=== PATIENT | female | born 1995 | race Caucasian/White ===

== ENCOUNTER 2025-03-04 20:27 | Outpatient (CLI) | payer OTHER, SELFPAY ==
[2025-03-04] VITALS (19 sets, daily range): BP systolic 122–129; BP diastolic 78–83; PULSE 75–100; O2SAT 99–100; BMI 31.4
--- NOTE | 2025-03-04 20:27 | PC.NURSE ---
Pt arrives to unit with elevated blood pressures at home and swelling in hands and feet.
--- OUTSIDE RECORDS SUMMARY | 2025-03-04 20:39 | XMS_ITS | Encounter Summary ---
Author Organization [facility] Address [address] [place] [address] Phone Care Team Providers Care Bee Breeder Name Role Phone [facility] PAC Primary Care Pro vider Reason for Visit * Reason Comments Medication Refill Encounter Details Date Type Department Care Team (Late st Contact Info) Description 08/29/2022 Refill [facility] - [facility] - [place] [address] [facility] [place] [id number] [address] [facility], PAC [address] [place] [address] Medication Refill Social History Tobacco Use Types Packs/Day Years Used Date Smoking Tobacco: Never Smokeless Tobacco: Never Alcohol Use Standard Drinks/Week Comments Not Currently 0 (1 standard drink = 0.6 oz pur e alcohol) PHQ-2 Answer Date Recorded Total Score - Questions 1-9 1 07/15 Sexually Active Control Partners Comments Yes Male just Comments No Sex and Gender Information Value Date Recorded Sex Assigned at Not on file Legal Sex Female 9:15 AM CDT Gender Identity Not on file Sexual Orientation Not on file COVID-19 Exposure Response Date Recorded In the last 10 days, have yo u been in contact with someone who was confirmed or suspected to have Coronavirus/COVID-19? No / Unsure 08/16/2022 8:26 AM CDT documented as of this encounter Miscellaneous Notes * Telephone Encounter - Cheri Haney RN - 08/30/2022 9:26 AM CDT Medication failed the protocol, provider to review and approve the medication order if appropriate. Requested Prescriptions Pending Prescriptions Disp Refills escitalopram (LEXAPRO) 10 MG Tablet [Pharmacy Med Name: ESCITALOPRAM 10MG TABLETS] 30 Tablet Sig: Take 1 Tablet by mouth daily. SSRI (6 Month Refill Only) Protocol Failed - 08/29/2022 2:18 PM Failed - Patient has established therapy with SSRI for at least 6 months Passed - No test in the past 12 months or most recent test was negative Passed - No active on record Passed - Visit with relevant provider in past 6 months or upcoming 90 days Recent Visits Date Type Provider Dept 08/02/[address] [facility] PAC [facility] 06/30/[address] [facility] PAC [facility] [place] Showing recent visits within past 182 days and meeting all other requirements Future Appointments No visits were found meeting these conditions. Showing future appointments within next 90 days and meeting all other requirements Passed - Has an encounter in the past 6 months with a depression, anxiety, adjustment disorder, OCD, or PTSD visit diagnosis documented in this encounter Plan of Treatment Upcoming Encounters Date Type Department Care Team (Late st Contact Info) Description 08/05/2025 10:15 AM CDT Office Visit [facility] - Internal Medicine - [place] [address] [place] [phone] [address] [facility] PAC [address] [place] [address] documented as of this encounter Goals Goal Patient Goal Type Associated Problems Recent Progress Patient-Stated? Author wants to feel better. Behavioral Health On track( 023 8:13 AM MODEL [employer]) Yes Leisa Yu LCSW Note: will gain insight regarding impact of trauma and gain relief from traumatic stress. Goal Reviewed with: patient today Readiness to change: Ready to change Department associated with goal: [facility] Steps to achieve goal: will share personal trauma story in counseling/psychotherapy sessions. will learn/identify how trauma has impacted personal life, physical health and behavioral health. will identify and practice, at least two, skills/activities/routines, to gain relief from the impact of trauma. documented as of this encounter Visit Diagnoses Not on filedocumented in this encounter Additional Health Concerns Infection Onset Date Last Indicated Resolved Time COVID - 19 10/05/2022 10/05/2022 10/15/2022 12:1 9 AM [employer] Influenza 10/05/2022 10/05/2022 10/12/2022 12:1 6 AM [employer] Respiratory Rule-Out 01/02/2025 01/02/2025 025 8:30 AM [employer]DEL [employer] COVID - 19 01/02/2025 01/02/2025 01/02/2025 8:29 AM [employer] Assessment Noted Time PHQ-9 Depression Total Score: 11 022 11:00 AM CDT documented as of this encounter Care Teams Bee Breeder Relationship Specialty Start Date End Date Ct Mccullough, LUZ ELENA [address] [place] [address] PCP - General Physician 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
--- OUTSIDE RECORDS SUMMARY | 2025-03-04 20:39 | XMS_ITS | Data Portability ---
Author Organization 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 Discussed plan. [email or web address] Not available 01/11/2025 10:55:51 01/25/2025 01/25/2025 Patient is __30 _weeks . Discussed plan. [email or web address] Not available 01/25/2025 11:55:14 02/08/2025 02/08/2025 Patient is ___weeks . Discussed plan. [email or web address] Not available 02/08/2025 12:30:28 02/22/2025 02/22/2025 Patient is __34_weeks . Discussed plan. [email or web address] Not available 02/22/2025 14:31:37 Plan of Treatment Reminders Order Date Submit Date Provider Last Modified By Organization Details Last Modified Time Details Appointments OB ROUTINE 2024 02:00P Joe Smith CNM Not available Not available Not available OB ROUTINE 2024 11:45A Joe Smith CNM Not available Not available Not available OB ROUTINE 2024 01:15P Joe Smith CNM Not available Not available Not available OB ROUTINE 2024 09:15A Joe Smith CNM Not available Not available Not available Lab None recorded . Referral None recorded . Procedures None recorded . Surgeries None recorded . Imaging US, obstetri c, follow-u p 2024 025 [email or web address] [place], [address], [address], [place], [address], 02/08/2025 21:06:13 Medication Orders None recorded . Patient TargetsNo targets recorded. Patient InstructionsNo instructions recorded. Reason for Referral None Reported. Results Created Date Observation Date Name Description Value Unit Range Abnormal Flag Note LastModifiedBy Organization Detail LastModifiedTime 01/11/20 25 01/11/2025 HEMAT OCRIT (HCT) HCT 34.6 % (based on docume nted legal sex) 34.0-4 5.0 Not Available [facility] (Lab) [address], [place], [address], 01/14/2025 09:57:49 01/11/20 25 01/11/2025 HEMOG LOBIN (HGB) HGB 11.1 g/dL (based on docume nted legal sex) 11.6-1 5.4 low Not Available [facility] (Lab) [address], [place], [address], 01/14/2025 09:57:50 01/11/20 25 01/11/2025 GTT - GESTA DEBORAH L SCREE N, ACOG OB glucose, 1 hour screen 129 mg/dL 70-135 Not Available [facility] (Lab) [address] [place], [address], 01/14/2025 09:57:50 01/11/2001/11/2025 HIV 1/2 ANTIG EN/AN TIBOD Y, REFLE X CONFI RMATI ON HIV antigen/anti body Nonrea ctive nonrea ctive HIV-1 antig en and HIV-1 /HIV- 2 antib odies were not detec natasha. No labor atory evide nce of HIV infec tion. Not Available [facility] (Lab) [address], [place], [address], 01/14/2025 09:57:51 02/28/20 25 01/11/2025 RPR SCREE N, REFLE X TITER /CONF IRMAT ION RPR qualitative Nonrea ctive nonrea ctive Not Available [facility] (Lab) [address], [place], [address], 01/14/2025 09:57:51 02/09/20 25 02/08/2025 US, obste tric, follo w-up No observ ation record [facility]. [email or web address] [address], [place], [address], 02/08/2025 17:20:58 02/09/20 25 02/08/2025 US, obste tric, follo w-up No observ ation record ed. [address], [place], [address], 02/14/2025 19:43:21 Result Notes None recorded. Problems Name Problem SNOMED Code Status Onset Date Resolution Date Notes Provider Name and Address Organization Details Recorded Time Mixed anxiety and depressive disorder 973451192 Active 2023 Nevin morales, [facility] 4 10:59:08 Past history of gestational hypertensio n 769875238 Active rec bASA daily Mendy Smith CNM [address], [place], [address], [facility] 4 14:50:02 47117419 Active 2023 Nevin morales, [facility] 4 14:46:27 Past history of gestational hypertensio n 894051375 Active rec bASA daily Mendy Smith CNM [address], [place], [address], [facility] 4 14:50:02 Placenta circumvalla ta 1996380 Active 32wk growth Carli Nunez [facility] 5 17:16:27 Problem Notes None recorded. Procedures Surgical History Date Name Laterality Status Provider Name and Address Organization Details Recorded Time 08/29/2024 Date of Last Pap Smear completed Nevin De Anda [facility] 09/21/2024 14:43:50 Imaging Results Imaging Date Name Status LastModified by Organiz ation Details LastModified Time 02/08/2025 US, obstetric, follow-up completed [facility] [address], [place], [address], 02/08/2025 17:20:58 02/08/2025 US, obstetric, follow-up completed [email or web address] [address], [place], [address], 02/14/2025 19:43:21 Procedure Notes None recorded. Medical Equipment None Reported. Allergies Allergen ID Allergen Name Allergen Category Reaction Reaction Severity Criticality Documentation Date Start Date Code Code System Note Provider Name and Address Organization Details Recorded Time 33533 Penicilli n Not available hives moderate Not available 08/29/2024 98726 RxNorm Nevin De Anda [facility] 4 10:58:48 Medications Name Sig Start Date Stop Date Status Note LastModified by Organization Details LastModified Time azithromyci n 250 mg tablet 02/08 completed Not Available Not Available Not Available neomycin-po lymyxin-dex ameth 3.5 mg/mL-10,00 0 unit/mL-0.1 % eye drops SHAKE WELL AND INSTILL 1 DROP IN LEFT EYE 4 TIMES DAILY 08/29 completed Not Available Not Available Not Available ondansetron 4 mg disintegrat ing tablet PLACE 1 TABLET BY TRANSLING UAL ROUTE EVERY 6 TO 8 HOURS 02/08 completed Not Available Not Available Not Available escitalopra m 10 mg tablet active Not Available Not Available Not Available cyclobenzap rine 5 mg tablet TAKE 1 TABLET 3 TIMES A DAY BY ORAL ROUTE. active Not Available Not Available No t Available Vitals Date Recorded Body weight Body mass index (BMI) Body height Systolic blood pressure Diastolic blood pressure Provider Name and Address Organization Details Last Updated DateTime 01/11/2025 32469.80 533 g 31.3 kg/m2 173.99 cm 115 mm[Hg] 73 mm[Hg] Nevin De Anda [facility] 5 10:16:56 Date Recorded Body height Body mass index (BMI) Body weight Systolic blood pressure Diastolic blood pressure Provider Name and Address Organization Details Last Updated DateTime 01/25/2025 173.99 cm 31.8 kg/m2 91139.58 g 131 mm[Hg] 81 mm[Hg] Mendy Smith, GE[facility] [address], [place], [address], [facility] 11:17:44 Date Recorded Body weight Body mass index (BMI) Body height Systolic blood pressure Diastolic blood pressure Provider Name and Address Organization Details Last Updated DateTime 02/08/2025 91794.13 666 g 32.7 kg/m2 173.99 cm 118 mm[Hg] 72 mm[Hg] Nevin De Anda [facility] 5 12:30:56 Date Recorded Body height Body mass index (BMI) Body weight Systolic blood pressure Diastolic blood pressure Provider Name and Address Organization Details Last Updated DateTime 02/22/2025 173.99 cm 33.1 kg/m2 175591.9 1 g 130 mm[Hg] 85 mm[Hg] Nevin De Anda [facility] 14:29:18 Social History Question Answer Notes LastModified by Organizat ion Details LastModified Time Tobacco Smoking Status Former Smoker Nevin morales, [facility] 08/29/2024 11:02:07 What Is Your Level Of Alcohol Consumption? None [email or web address] Information not available 08/29/2024 If You Are , What Was Your Level Of Alcohol Consumption Prior To ? Occasional [email or web address] Information not available 08/29/2024 Are You Blind Or Do You Have Difficulty Seeing? No [email or web address] Information not available 08/29/2024 What Is Your Level Of Caffeine Consumption? Occasional [email or web address] Information not available 08/29/2024 How Much Tobacco Do You Chew? None [email or web address] Information not available 08/29/2024 In The 14 Days Before Symptom Onset, Have You Had Close Contact With A Laboratory-confir med COVID-19 While That Case Was Ill? No [email or web address] Information not available 08/29/2024 In The 14 Days Before Symptom Onset, Have You Had Close Contact With A Person Who Is Under Investigation For COVID-19 While That Person Was Ill? No [email or web address] Information not available 08/29/2024 Have You Been To An Area Known To Be High Risk For COVID-19? No [email or web address] Information not available 08/29/2024 Are You Deaf Or Do You Have Serious Difficulty Hearing? No [email or web address] Information not available 08/29/2024 What Type Of Diet Are You Following? REGULAR [email or web address] Information not available 08/29/2024 What Is The Highest Grade Or Level Of School You Have Completed Or The Highest Degree You Have Received? 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 No [email or web address] Information not available 08/29/2024 Do You Use Protection During Sex? No [email or web address] Information not available 08/29/2024 Do You Use Your Seat Belt Or Car Seat Routinely? Yes [email or web address] Information not available 08/29/2024 Do You Have Smoke And Carbon Monoxide Detectors In Your Home? Yes [email or web address] Information not available 08/29/2024 How Much Tobacco Do You Smoke? No [email or web address] Information not available 08/29/2024 Do You Feel Stressed (tense, Restless, Nervous, Or Anxious, Or Unable To Sleep At Night)? [id number] Information not available 08/29/2024 Do You Use Any Illicit Or Recreational Drugs? No [email or web address] Information not available 08/29/2024 Do You Use Sunscreen Routinely? Yes [email or web address] Information not available 08/29/2024 Has Tobacco Cessation Counseling Been Provided? No [email or web address] Information not available 08/29/2024 Have You Used IV Drugs? No [email or web address] Information not available 08/29/2024 Do You Or Have You Ever Used Any Other Forms Of Tobacco Or Nicotine? No [email or web address] Information not available 08/29/2024 Sex: Unknown Functional Status Question Answer Note LastModified by Organizat ion Details LastModified Time Do you have difficulty walking or climbing stairs? No [email or web address] Information not available 08/29/2024 Are you able to walk? YESWOREST [email or web address] Information not available 08/29/2024 Are you able to care for yourself? Yes Information not available 08/29/2024 Do you have difficulty dressing or bathing? No Information not available 08/29/2024 What is your exercise level? Occasional [email or web address] Information not available 08/29/2024 Mental Status None recorded. Family History Relationship Description Onset Age of this Age Resolved Age Notes LastModified by Organization Details LastModified Time Unspecified Relation Family history unknown [email or web address] Not available 01/13 10:55:40 Father Hypertensive disorder [email or web address] Not available 08/29 11:01:43 Medical History Condition Response Allergies (Food, seasonal, environmental ) N Other N Breast Cancer N Drug/Latex Allergies/Reactions N Blood Transfusion N Lung Disease N Dermatologic Disorders N Defects or Inherited Disease N Breast Problem N Gestational Diabetes N Hematologic disorders N Anesthesia Complications N History of STI N Deep Vein Thrombosis N Polycystic ovary syndrome N Anxiety Disorder Y Autoimmune disease N Arthritis N Infertility N Polyps N Acid Reflux (GERD) N History of abnormal pap N Cancer N Stroke N Varicosities N Neurologic/Epilepsy N Endometriosis N High Cholesterol N Headaches N Fibromyalgia N Kidney Disease N Heart Problems N Kidney or Bladder Problems N Thyroid Problems N GI Problems N Eating Disorder N Anemia N Art (IVF or FET) N Psychiatric Illness N Ovarian Cancer N Diabetes N Pulmonary (TB, Asthma) N Hepatitis/Liver Disease N No Past Medical History N Eczema N Urinary Tract Infection N Abuse/Domestic Violence N Asthma N Trauma/Violence N Depression/ depression Y Heart Disease N Pre-Eclampsia N Hypertension Y Osteoporosis N Thrombophilias N Gynecological History Statement/Question Response Abnormal Pap N Date of Last Mammogram Date of LMP 06/28/2024 On BCP's at Conception? N N Was last menstrual period normal Y STIs/STDs N HPV Vaccine Y Duration of Flow (days) 3 Current Control Method Age at First Child 24 Date of Last Colonoscopy Frequency of Cycle (Q days) 5 Sexually Active? Y Date of DEXA bone scan Age of first menstrual cycle 13 Date of Last Pap Smear 08/29/2024 Sexual Problems? N LMP Approximate N Obstetrics History GPAL:G 2 P 1 0 0 1 Type Value Full Term 1 Living 1 Total 2 Past Encounters Encounter ID Performer Location Encounter Start Date Encounter Closed Date Diagnosis/Indication Diagnosis SNOMED-CT Code Diagnosis ICD10 Code Diagnosis Note [id number] [facility] [address] [address] 08/29/2024 09:45:14 08/29/2024 10:39:41 [id number] Mendy Smith [place] [address] [place] [address] 08/29/2024 09:45:32 08/29/2024 11:21:45 Amenorrhea 09243600 N91.2 Gynecologi c examination 69305141 Z11.51 Z11.3 [id number] [facility] [address] [place] [address] 09/21/2024 13:55:49 09/21/2024 14:36:57 screening 784416212 Z36.82 Z3A.12 [id number] Mendy Smith [facility] [address] [place] [address] 09/21/2024 13:56:07 09/21/2024 15:00:47 Gestation period, 12 weeks 40474029 Z3A.12 Venereal d isease screening 509693758 Z11.3 Routine an tenatal care 151875059 Z34.90 Nausea and vomiting 1693 1999 R11.2 [id number] Mendy Smith [facility] [address] [place] [address] 10/19/2024 09:30:54 10/19/2024 10:21:28 Gestation period, 16 weeks 76314747 Z3A.16 [id number] [facility] [address] [address] 11/16/2024 14:06:51 11/16/2024 15:24:38 screening for malformation 770823541 Z36.3 Z3A.20 [id number] [facility] [address],[place] [address] 11/16/2024 14:07:41 11/16/2024 15:53:32 Gestation period, 20 weeks 33887060 Z3A.20 [id number] Mendy Smith CNM [place] [address],[place] [address] 12/12/2024 14:14:02 12/12/2024 14:59:01 Gestation period, 23 weeks 47200991 Z3A.23 [id number] [facility] [address],[place] [address] 01/11/2025 09:36:41 01/11/2025 10:58:31 Gestation period, 28 weeks 61544512 Z3A.28 [id number] Mendy Smith CNM [place] [address],[place] [address] 01/25/2025 11:08:05 01/25/2025 11:56:53 Gestation period, 30 weeks 95932663 Z3A.30 [id number] [facility] [address],[place] [address] 02/08/2025 10:55:15 02/08/2025 12:10:25 Past history of gestational hypertension 109463481 Z87.59 O43.113 Z3A.32 [id number] Mendy Smith CNM [place] [address],[place] [address] 02/08/2025 10:55:36 02/08/2025 12:39:02 Gestation period, 32 weeks 8949471 Z3A.32 [id number] Mendy Smith CNM [place] [address] [address] 02/22/2025 14:17:07 02/22/2025 14:37:08 Gestation period, 34 weeks 26974666 Z3A.34 Health Concerns Section Related Observation LastModified by Organization Detai ls LastModified Time None Recorded Concern Status LastModified by Organization Details LastModified Time None Recorded Advance Directives Directive None Recorded Payers Encounter Date Sequence Insurance Name Policy Number Policy Freeman Covered Member ID Freeman Member ID Guarantor Name 01/11/2025 1 [facility] [id number] Scottie Kurtz [id number] Suzy Kurtz 01/25/2025 1 [facility] [id number] Scottie Kurtz [id number] Suzy Kurtz 01/25/2025 2 () Suzy Kurtz [id number] Suzy Jerardo 02/08/2025 1 [facility] [id number] Scottie Kurtz [id number] Suzy Kurtz 02/08/2025 2 () Suzy Kurtz [id number] Suzy Jerardo 02/08/2025 1 [facility] [id number] Scottie Kurtz [id number] Suzy Kurtz 02/08/2025 2 () Suzy Kurtz [id number] Suzy Jerardo 02/22/2025 1 [facility] [id number] Scottie Kurtz [id number] Suzy Kurtz 02/22/2025 2 () Suzy Kurtz [id number] Suzy Kurtz OBGyn Episode Ob Episode Information Episode Created Date Number of Fetuses Patient Bloodtype Patient rh Status Prepregnancy Weight lbs Domestic Partner Domestic Partner Phone Father Name Wool Washer Status 08/29/20 24 1 CLOSED Fetus Data First Name Last Name Admitted to NICU Weight (g) Sex Living Outcome Pediatric Complications Fetus ID Race Codes Race Delivery Type 3826.95 5704 M Full Term [id number] Vaginal Delivery Deuce Calculation Initial Deuce Date Initial Exam Date Initial Exam Provider Initial Ultrasound Date Last Menstrual Period Date Ultra Sound Weeks Gestation 0 Eighteen To Twenty Week Deuce Update Ultra Sound Date Fundal Height At Umbil Quickening Date Ultra Sound Latest Weeks Gestation Final Deuce Confirmed By Final Deuce Confirmed Date Final Deuce Date Ultra Sound Latest Days Gestation 0 0 Menstrual History Last Menstrual Date Menses Monthly On Bcp Conception Prior Menses Frequency Hcg Plus Date Menarche Onset Age Delivery Information Delivery Date Delivery Type Labor Anesthesia Weeks Gestation Incision Type Labor Labor Length Hrs Delivered By Post Complications Tubal Sterilization Discharge Date Comments 9 40 GHTN Discharge Information Feeding Method Contraceptive Method Maternal HG B and HCT Levels Ob Episode Information Episode Created Date Number of Fetuses Patient Bloodtype Patient rh Status Prepregnancy Weight lbs Domestic Partner Domestic Partner Phone Father Name Wool Washer Status 09/21/20 24 1 AB Positive 189 Scottie oliver OPEN Fetus Data First Name Last Name Admitted to NICU Weight (g) Sex Living Outcome Pediatric Complications Fetus ID Race Codes Race Delivery Type [id number] Problems Problem Notes 32wk growth Problem Name Start Date End Date Resolution Snomed Code Not e Placenta circumvallata 1143621 32wk growth Past history of gestational hypertension 005187395 rec bASA daily Deuce Calculation Initial Deuce Date Initial Exam Date Initial Exam Provider Initial Ultrasound Date Last Menstrual Period Date Ultra Sound Weeks Gestation 04/04/2025 08/29/2024 Mendy Sarah 06/28/2024 06/28/2024 9 Eighteen To Twenty Week Deuce Update Ultra Sound Date Fundal Height At Umbil Quickening Date Ultra Sound Latest Weeks Gestation Final Deuce Confirmed By Final Deuce Confirmed Date Final Deuce Date Ultra Sound Latest Days Gestation 0 0 Pre- Flowsheet Flowsheet Date 09/21/2024 Malik Score Blood Edema Fundus Height Fundus Units Glucose Ketones Leukocytes Nitrite Labor Signs Protein Cervic Dilation Cervic Effacement Cervic Station neg none none trace Type Weight in lbs Pre/Post Dialysis Refused Weight 188.644143497640 BP Diastolic BP Location Tested BP Systolic BP Type 83 120 Fetus Heart Rate Present Fetus Movement A Yes Comments Patient is having some hip p ain, nausea and vomiting. past hx of GHTN will start basa, start routine care reviewed education and precautions Flowsheet Date 10/19/2024 Malik Score Blood Edema Fundus Height Fundus Units Glucose Ketones Leukocytes Nitrite Labor Signs Protein Cervic Dilation Cervic Effacement Cervic Station Type Weight in lbs Pre/Post Dialysis Refused Weight 191.757220828409 BP Diastolic BP Location Tested BP Systolic BP Type 81 125 Fetus Heart Rate Present Fetus Movement Comments +FM by US-sp, doing well hector sea better after zofran. precautions and education f/u 4 weeks with anatomy Flowsheet Date 11/16/2024 Malik Score Blood Edema Fundus Height Fundus Units Glucose Ketones Leukocytes Nitrite Labor Signs Protein Cervic Dilation Cervic Effacement Cervic Station Type Weight in lbs Pre/Post Dialysis Refused BP Diastolic BP Location Tested BP Systolic BP Type Fetus Heart Rate Present Fetus Movement Comments Flowsheet Date 11/16/2024 Malik Score Blood Edema Fundus Height Fundus Units Glucose Ketones Leukocytes Nitrite Labor Signs Protein Cervic Dilation Cervic Effacement Cervic Station none Type Weight in lbs Pre/Post Dialysis Refused 192.271559612788 BP Diastolic BP Location Tested BP Systolic BP Type 81 134 Fetus Heart Rate Present Fetus Movement A Yes Comments anatomy complete! doing well circumvallate placenta, q 4 months precautions and education Flowsheet Date 12/12/2024 Malik Score Blood Edema Fundus Height Fundus Units Glucose Ketones Leukocytes Nitrite Labor Signs Protein Cervic Dilation Cervic Effacement Cervic Station neg none Type Weight in lbs Pre/Post Dialysis Refused 200.773878132439 BP Diastolic BP Location Tested BP Systolic BP Type 73 112 Fetus Heart Rate Present A 150 Present Fetus Movement A Yes Comments doing well +FM, GCT at next visit, getting room ready! precautions and education Flowsheet Date 01/11/2025 Malik Score Blood Edema Fundus Height Fundus Units Glucose Ketones Leukocytes Nitrite Labor Signs Protein Cervic Dilation Cervic Effacement Cervic Station neg none 29 cm Type Weight in lbs Pre/Post Dialysis Refused 209.777534636382 BP Diastolic BP Location Tested BP Systolic BP Type 73 115 Fetus Heart Rate Present A 147 Present Fetus Movement A Yes Comments doing well, gct today, preca utions and education, rx for tdap and flu shot given, +FM, f/u 2 weeks Flowsheet Date 01/25/2025 Malik Score Blood Edema Fundus Height Fundus Units Glucose Ketones Leukocytes Nitrite Labor Signs Protein Cervic Dilation Cervic Effacement Cervic Station neg none 32 cm Type Weight in lbs Pre/Post Dialysis Refused Weight 212.708553916737 BP Diastolic BP Location Tested BP Systolic BP Type 81 131 Fetus Heart Rate Present A 148 Fetus Movement A Yes Comments +FM, doing well precautions and education, growth at next visit already scheduled f/u 2 weeks Flowsheet Date 02/08/2025 Malik Score Blood Edema Fundus Height Fundus Units Glucose Ketones Leukocytes Nitrite Labor Signs Protein Cervic Dilation Cervic Effacement Cervic Station Type Weight in lbs Pre/Post Dialysis Refused BP Diastolic BP Location Tested BP Systolic BP Type Fetus Heart Rate Present Fetus Movement Comments Flowsheet Date 02/08/2025 Malik Score Blood Edema Fundus Height Fundus Units Glucose Ketones Leukocytes Nitrite Labor Signs Protein Cervic Dilation Cervic Effacement Cervic Station neg none Type Weight in lbs Pre/Post Dialysis Refused 218.556157232948 BP Diastolic BP Location Tested BP Systolic BP Type 72 118 Fetus Heart Rate Present Fetus Movement A Yes Comments Patient states that is havin g some muscle tension in groin area. Flowsheet Date 02/22/2025 Malik Score Blood Edema Fundus Height Fundus Units Glucose Ketones Leukocytes Nitrite Labor Signs Protein Cervic Dilation Cervic Effacement Cervic Station neg none Type Weight in lbs Pre/Post Dialysis Refused Weight 221.385296861420 BP Diastolic BP Location Tested BP Systolic BP Type 85 130 Fetus Heart Rate Present Fetus Movement A Yes Comments Patient is having pain and c ontractions. reviewed precautions and education +FM f/u 2 weeks gbs collected Menstrual History Last Menstrual Date Menses Monthly On Bcp Conception Prior Menses Frequency Hcg Plus Date Menarche Onset Age 0806/28/2024 Delivery Information Delivery Date Delivery Type Labor Anesthesia Weeks Gestation Incision Type Labor Labor Length Hrs Delivered By Post Complications Tubal Sterilization Discharge Date Comments Discharge Information Feeding Method Contraceptive Method Maternal HG B and HCT Levels
--- OUTSIDE RECORDS SUMMARY | 2025-03-04 20:39 | XMS_ITS | Clinical Summary ---
Author Organization [facility] Address [address] [place] [address] Phone Care Team Providers Care Paper Baler Name Role Phone [facility] Primary Care Pro vider Allergies Active Allergy Reactions Criticality Noted Date Comments Penicillins Hives Low 06/30/2022 Medications escitalopram (LEXAPRO) 10 MG Tablet Take 1 Tablet by mouth daily. 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 Office Visit [facility] [address] [place] [address] Leonel Graham MD Acute non-recurrent sinusitis, unspecified location (Primary Dx); Stuffy and runny nose; Sinus pain; Acute nonintractable headache, unspecified headache type Discharge Disposition: Discharged to home or Selfcare 01/02/2025 Travel 12/16/2024 MyChart RX Renewal [facility] [address] [place] [address] Ct M[facility], LUZ ELENA Medication Renewal Reviewed from Last 3 Months Immunizations Immunization Administration Dates Next Due Covid-19, Mrna, Lnp-s, Pf, 30 Mcg/0.3 Ml Dose (P fizer) 04/21/2021,03/30/2021 Influenza Vaccine, Quadrivalent, PF 12/21/2018 Influenza,Split Virus,Trivalent,Injectable,PF TDAP Vaccine 01/25/2025,05/21/2019 Family History Medical History Relation Name Comments No Known Problems Father Anxiety disorder Mother Depression Mother Depression Sister Relation Name Status Comments Father Mother Sister Social History Tobacco Use Types Packs/Day Years Used Date Smoking Tobacco: Never Passive Smoke Exposure: Never Smokeless Tobacco: Never Tobacco Cessation:Counseling Given: No Alcohol Use Standard Drinks/Week Comments Not Currently 0 (1 standard drink = 0.6 oz pur e alcohol) [facility] Master Routeities Answer Date Recorded In the past 12 months has [employer], gas, oil, or water [employer] threatened to shut off services in your home? No 08/01/2024 Social Connection and Isolation Panel [NHANES] A nswer Date Recorded In a typical week, how many times do you talk on the phone with family, friends, or neighbors? Three times a week 08/01/2024 How often do you get togethe r with friends or relatives? Twice a week 08/01/2024 How often do you attend chur or scientology services? Never 08/01/2024 Do you belong to any clubs o r organizations such as religious groups, unions, fraternal or athletic groups, or school groups? No 08/01/2024 How often do you attend meet ings of the clubs or organizations you belong to? Patient declined 08/01/2024 Are you , , di vorced, , never , or living with a partner? 08/01/2024 AUDIT-C Answer Date Recorded Q1: How often do you have a drink containing alc ohol? Monthly or less 08/01/2024 Q2: How many drinks containi ng alcohol do you have on a typical day when you are drinking? 1 or 2 08/01/2024 Q3: How often do you have si x or more drinks on one occasion? Never 08/01/2024 Overall Financial Resource Strain (CARDIA) Answe r Date Recorded How hard is it for you to pa y for the very basics like food, housing, medical care, and heating? Not hard at all 08/01/2024 PHQ-2 Answer Date Recorded Total Score - Questions 1-9 0 12/15 [facility] - Occupational Stress Questionnaire Answer Date Recorded Do you feel stress - tense, restless, nervous, or anxious, or unable to sleep at night because your mind is troubled all the time - these days? Not at all 08/01/2024 Exercise Vital Sign Answer Date Recorde d On average, how many days pe r week do you engage in moderate to strenuous exercise (like a brisk walk)? 2 days 08/01/2024 On average, how many minutes do you engage in exercise at this level? 40 min 08/01/2024 Hunger Vital Sign Answer Date Recorded Within the past 12 months, y ou worried that your food would run out before you got the money to buy more. Never true 08/01/20 24 Within the past 12 months, t he food you bought just didn't last and you didn't have money to get more. Never true 08/01/2024 PRAPARE - Transportation Answer Date Re corded In the past 12 months, has l ack of transportation kept you from medical appointments or from getting medications? No 07/15 In the past 12 months, has l ack of transportation kept you from meetings, work, or from getting things needed for daily living? No 08/01/2024 Housing Stability Vital Sign Answer Say e Recorded In the last 12 months, was t here a time when you were not able to pay the mortgage or rent on time? No 03/09/2024 In the last 12 months, how many places have you lived? 1 03/09/2024 In the last 12 months, was t here a time when you did not have a steady place to sleep or slept in a skilled nursing (including now)? No 03/09/2024 Housing Stability Vital Sign Answer Say e Recorded In the last 12 months, was t here a time when you were not able to pay the mortgage or rent on time? No 08/01/2024 In the past 12 months, how m any times have you moved where you were living? 0 08/01/2024 At any time in the past 12 m [facility], were you homeless or living in a skilled nursing (including now)? No 08/01/2024 Education Answer Date Recorded What is the highest level of school you have completed or the highest degree you have received? Associate degree: occupational, technical, or vocational program 08/03/2023 Sexually Active Control Partners Comments Yes Male just Estimated Date of Delivery Comme nts Yes 05/03/2025 Sex and Gender Information Value Date Recorded Sex Assigned at Not on file Legal Sex Female 9:15 AM CDT Gender Identity Not on file Sexual Orientation Not on file Last Filed Vital Signs Vital Sign Reading Time Taken Comments Blood Pressure 130/70 01/02/2025 8:34 AM SCREW EYE ASSEMBLER Pulse 110 01/02/2025 8:34 AM SCREW EYE ASSEMBLER Temperature 36.4 C (97.5 F) 01/02/2025 8:34 AM SCREW EYE ASSEMBLER Respiratory Rate 12 08/03/2024 10:03 AM CDT Oxygen Saturation 99% 01/02/2025 8:34 AM SCREW EYE ASSEMBLER Inhaled Oxygen Concentration - - Weight 93.9 kg (207 lb) 01/02/2025 8:34 AM SCREW EYE ASSEMBLER Height 180.3 cm (5' 11 ) 01/02/2025 8:34 AM SCREW EYE ASSEMBLER Body Mass Index 28.87 01/02/2025 8:34 AM SCREW EYE ASSEMBLER Plan of Treatment Upcoming Encounters Date Type Department Care Team (Late st Contact Info) Description 08/05/2025 10:15 AM CDT Office Visit [facility] [place] [address] [place] [address] [address] M[facility], PAC [address] [place] [address] Health Maintenance Due Date Last Done Comments Hepatitis B Immunization (1 of - 19+ 3-dose series) 2013 Pap Smear 2015 Cervical Cancer Screening (CCS) 2024 HPV/Cotest 2024 SARS-COV-2 Immunization ( season) 2024 04/21/2021, 03/30/2021 Hepatitis C Virus (HCV) Screening 09/21/2025 09/21/2024 Td Immunization Every 10 Years (Adults With 1 Tdap) 01/25/2035 01/25/2025, 05/21/2019 DTaP/Tdap/Td Immunization Discontinued 2024, 05/21/2019 Influenza Immunization Completed , 12/21/2018 TdaP Immunization Discontinued 01/25/2025, 05/21/2019 Meningococcal Immunization (ACWY) Aged Out No longer eligible based on patient's age to complete this topic Pneumococcal Immunization Combined Aged Out No longer eligible based on patient's age to complete this topic Respiratory Syncytial Virus (RSV) Immunization (Adult) (No Doses Required) Completed Rotavirus Immunization Aged Out No lo nger eligible based on patient's age to complete this topic Goals Goal Patient Goal Type Associated Problems Recent Progress Patient-Stated? Author wants to feel better. Behavioral Health On track( 023 8:13 AM SCREW EYE ASSEMBLER) Yes Leisa Yu, RESIDENT BUYER Note: will gain insight regarding impact of trauma and gain relief from traumatic stress. Goal Reviewed with: patient today Readiness to change: Ready to change Department associated with goal: [facility] Steps to achieve goal: will share personal trauma story in counseling/psychotherapy sessions. will learn/identify how trauma has impacted personal life, physical health and behavioral health. will identify and practice, at least two, skills/activities/routines, to gain relief from the impact of trauma. Procedures Procedure Name Priority Date/Time Associated Diagnosis Comments POC SARS-COV-2 BY MOLECULAR Routine 01/02/2025 8:20 AM SCREW EYE ASSEMBLER Stuffy and runny nose Sinus pain Acute nonintractable headache, unspecified headache type POC INFLUENZA A AND B BY MOLECULAR Routine 01/02/2025 8:20 AM SCREW EYE ASSEMBLER Stuffy and runny nose Sinus pain Acute nonintractable headache, unspecified headache type from Last 3 Months Results * POC SARS-COV-2 BY MOLECULAR (01/02/2025 8:20 AM SCREW EYE ASSEMBLER) SARSCOV2 Negative Negative, INVALID PROCEDURE CONTROL Valid 01/02/2025 8:20 AM SCREW EYE ASSEMBLER Leonel Graham MD POINT OF CARE TESTING (MANU AL) Final Result * POC INFLUENZA A AND B BY MOLECULAR (01/02/2025 8:20 AM SCREW EYE ASSEMBLER) INFLUENZA A RNA Negative Negative, Invalid INFLUENZA B RNA Negative Negative, Invalid PROCEDURE CONTROL Valid 01/02/2025 8:20 AM SCREW EYE ASSEMBLER Leonel Graham MD POINT OF CARE TESTING (MANU AL) Final Result from Last 3 Months Insurance MEDICAID [employer] [facility] Care Teams Paper Baler Relationship Specialty Start Date End Date Ct M[facility] PAC [address] [place] [address] PCP - General Physician Yarding Supervisor 06/29/22
--- OUTSIDE RECORDS SUMMARY | 2025-03-04 20:39 | XMS_ITS | Continuity of Care Document ---
Author Name [facility] Organization [facility] Care Team Providers Care Bridge Design Engineer Name Role Phone [facility] Unavailable Unavailable Problems Combined list of problems from Department of Defense and Veterans Affairs facilities. It does not include entries that were removed or entered in error. Problem Status Onset Date Problem Type Date of Resolution Comments Source Encounter for supervision of normal first , third trimester Active 05/21/[address] [facility] Maternal care for other (suspected) abnormality and damage, fetus 1 Inactive 03/06/[address] [facility] Allergies, Adverse Reactions, Alerts Combined list of allergies from Department of Defense and Veterans Affairs facilities. It does not include entries that were removed or entered in error. Substance Category Reaction Severity Reaction type Status Date Reported Comments Source No Known Allergies Drug allergy (disorder) active 03/08/2019 [facility] Immunizations Combined list of available immunizations from the Department of Defense and Veterans Affairs facilities. Immunization Series Date Given Administered By Site Reaction Lot Number CVX Code Drug Grievance Coordinator Status Comments Source tetanus toxoid, reduced diphtheria toxoid, and acellular pertu is vaccine, adsorbed 1 2018 MADELINE PÉREZ [id number] 115 [employer] ([facility]) complet ed tetanus toxoid, reduced diphtheri a toxoid, and acellular pertussis vaccine, adsorbed DoD Influenza, injectable, quadrivalent, preservative free 1 2018 FIDE GONZALEZ [id number] [employer] ([facility]) complet ed Influenza , injectabl e, quadrival ent, preservat theresa free DoD Encounters Combined list of: 1) Encounters from Department of Veterans Affairs facilities going backup to the last 18 months, not all VA inpatient encounters are included; 2) Encounters from the Department of Defense facilities going backup to 280 months. Location Location Details Encounter Type Encounter Number Reason For Visit Attending Provider ADM Date DC Date Status Disposition Source [facility] OUTPATIENT [id number] OBI LMP ? KEVIN SUH 11/30 Released w/o Limitations [facility] [id number] NOB/EDC 19 JUL 2019 YONY ORTEGA 12/21 Released w/o Limitations [facility] OUTPATIENT [id number] FIDE GOZNALEZ 12/21 Released w/o Limitations [facility] OUTPATIENT [id number] CHRISTINA; ESTELA: 07/19/19 YONY ORTEGA 02/02 Released w/o Limitations [facility] TELE CONSULT [id number] Notes Entered by: YONY VÁSQUEZ 28 Feb 2019 1126 ------- ------- ------- ------- -- F/U US - LIMITED VIEW YONY ORTEGA 02/28 [facility] OUTPATIENT [id number] 20+5 WKS F/U FROM RADIOLO GEORGINA SALDAÑA W 03/06 Released w/o Limitations [facility]( [facility]) [facility] OUTPATIENT [id number] eye exam RADHA LAUREN 03/08 Released w/o Limitations [facility] OUTPATIENT [id number] preg ESTELA 19 Jul 2019 ROBH appt YONY ORTEGA 03/09 Released w/o Limitations [facility] OUTPATIENT [id number] christina estela YONY ORTEGA 04/18 Released w/o Limitations [facility] OUTPATIENT [id number] MARCELO PÉREZ 05/21 Released w/o Limitations [facility]) [facility] OUTPATIENT [id number] srob estela sep5 CHAMP SHIRLEY 05/21 Released w/o Limitations [facility](Ob [facility]etric [facility]) OUTPATIENT [id number] christina estela sep 5 YONY ORTEGA 06/15 Released w/o Limitations [facility]) TELE CONSULT [id number] Notes Entered by: Rosemarie MONTALVO 25 Jun 2019 1345 ------- ------- ------- ------- -- JESUSITA YAN 06/25 [facility]( [facility] [place] [facility]) OUTPATIENT [id number] christina estela sep 5 YUKI GUTIÉRREZ 07/06 Released w/o Limitations [facility](Ob stetric [facility]) OUTPATIENT [id number] 1 christina estela sep 5 YUKI RUSSO 07/13 Released w/o Limitations [facility] DIRECT TO [facility] FROM OTHER THAN ER OR APU [id number] SERGIO DELATORRE 07/17 DISCHARGED HOME [facility]) TELE CONSULT [id number] Notes Entered by: KIM ZAMUDIO 17 Jul 2019 2225 ------- ------- ------- ------- -- KIM ARELLANO 07/18 [facility]( [facility] [place] [facility](Ob stetric [facility]) OUTPATIENT [id number] 2-4 week pp appt. ERICK HU 08/01 Released w/o Limitations [facility](Ob stetric [facility]) OUTPATIENT [id number] deliver ed sept 4/ six wks pp f/u ELLANATHAN Rosemarie 08/29 Released w/o Limitations [facility]( necology [facility]) OUTPATIENT [id number] CONTROL CONSULT DOUGIE HARMON 04/02 Released w/o Limitations [facility] OUTPATIENT [id number] BUMP ON WRIST ERICK SERRANO 07/08 Released w/o Limitations [facility]( [facility]( necology [facility]) TELE CONSULT [id number] Notes Entered by: CASEY LEE 18 Sep 2020 1113 ------- ------- ------- ------- -- please call MAHESH GANN 09/18 [facility]( necology [facility]) TELE CONSULT [id number] Notes Entered by: CASEY LEE 19 Sep 2020 0821 ------- ------- ------- ------- -- Please call MAHESH GANN 09/19 [facility]( necology [facility]) OUTPATIENT [id number] Contrac eptive family counselor CASEY Suarez 12/25 Released w/o Limitations [facility] Procedures Combined list of: 1) Procedures from Department of Veterans Affairs facilities going back up to thelast 18 months, not all VA non-surgical procedures are included; 2) All procedures from the Department of Defense facilities. Procedure Procedure Type Code Date Tiffanie Weinstein CARE VISIT () 08/29/20 19 DoD CARE VISIT () 08/01/20 19 DoD MONITORING OF PRODUCTS OF CONCEPTION, CARDIAC RATE, EXTERNAL APPROACH 07/20/20 19 DoD DELIVERY OF PRODUCTS OF CONCEPTION, EXTERNAL APPROACH 07/20/20 19 DoD REPAIR PERINEUM MUSCLE, OPEN APPROACH 07/20/20 19 DoD POSTOPERATIVE FOLLOW-UP VISIT, NORMALLY INCLUDED IN THE SURGICAL PACKAGE, INDICATE THAT EVALUATION & MANAGEMENT SERVICE WAS PERFORMED DURING A POSTOPERATIVE PERIOD REASON RELATED ORIGINAL PROCEDURE 07/20/20 [facility] POSTOPERATIVE FOLLOW-UP VISIT, NORMALLY INCLUDED IN THE SURGICAL PACKAGE, INDICATE THAT EVALUATION & MANAGEMENT SERVICE WAS PERFORMED DURING A POSTOPERATIVE PERIOD REASON RELATED ORIGINAL PROCEDURE 07/19/20 [facility] POSTOPERATIVE FOLLOW-UP VISIT, NORMALLY INCLUDED IN THE SURGICAL PACKAGE, INDICATE THAT EVALUATION & MANAGEMENT SERVICE WAS PERFORMED DURING A POSTOPERATIVE PERIOD REASON RELATED ORIGINAL PROCEDURE 07/18/20 [facility] SUBSEQ CARE VISIT () [EXCLS:PATIENTS WHO ARE SEEN FOR A CONDITION UNREL TO / CARE (EG,AN UP RESPIR INFECT;PATIENTS SEEN FOR CONSULTATION ONLY,NOT FOR CONT CARE)] 07/13/20 [facility] SUBSEQ CARE VISIT () [EXCLS:PATIENTS WHO ARE SEEN FOR A CONDITION UNREL TO / CARE (EG,AN UP RESPIR INFECT;PATIENTS SEEN FOR CONSULTATION ONLY,NOT FOR CONT CARE)] 07/06/20 [facility] CULTURE, PRESUMPTIVE, PATHOGENIC ORGANISMS, SCREENING ONLY 06/15/20 [facility] SUBSEQ CARE VISIT () [EXCLS:PATIENTS WHO ARE SEEN FOR A CONDITION UNREL TO / CARE (EG,AN UP RESPIR INFECT;PATIENTS SEEN FOR CONSULTATION ONLY,NOT FOR CONT CARE)] 05/21/20 [facility] IMMUNIZATION ADMINISTRATION (INCLUDES PERCUTANEOUS, INTRADERMAL, SUBCUTANEOUS, OR INTRAMUSCULAR INJECTIONS); 1 VACCINE (SINGLE OR COMBINATION VACCINE/TOXOID) 05/21/20 [facility] SUBSEQ CARE VISIT () [EXCLS:PATIENTS WHO ARE SEEN FOR A CONDITION UNREL TO / CARE (EG,AN UP RESPIR INFECT;PATIENTS SEEN FOR CONSULTATION ONLY,NOT FOR CONT CARE)] 04/18/20 [facility] SUBSEQ CARE VISIT () [EXCLS:PATIENTS WHO ARE SEEN FOR A CONDITION UNREL TO / CARE (EG,AN UP RESPIR INFECT;PATIENTS SEEN FOR CONSULTATION ONLY,NOT FOR CONT CARE)] 03/09/20 [facility] DETERMINATION OF REFRACTIVE STATE 03/08/20 [facility] ULTRASOUND, UTERUS, REAL TIME WITH IMAGE DOCUMENTATION, AND MATERNAL EVALUATION PLUS DETAILED ANATOMIC EXAMINATION,TRANSABD OMINAL APPROACH; SINGLE OR FIRST GESTATION 03/06/20 [facility] SUBSEQ CARE VISIT () [EXCLS:PATIENTS WHO ARE SEEN FOR A CONDITION UNREL TO / CARE (EG,AN UP RESPIR INFECT;PATIENTS SEEN FOR CONSULTATION ONLY,NOT FOR CONT CARE)] 02/03/20 [facility] INFLUENZA VIRUS VACCINE, QUADRIVALENT (IIV4), SPLIT VIRUS, PRESERVATIVE FREE, 0.5 ML DOSAGE, FOR INTRAMUSCULAR USE 12/21/[address] [facility] PRENAT FLW SHEET DOC,MED REC,1ST PRENAT VIS (DOC INC MIN BP,WT,URINE PROT,UTER SZ,FET HRT TONE,&EST DATE DEL). REP ALSO:DATE VIS &,IN SEP FLD,DATE LMP (NOTE:IF REP [id number],NOT NECESSARY TO REP 0500F) 12/21/19 [facility] ULTRASOUND, UTERUS, REAL TIME WITH IMAGE DOCUMENTATION,TRANSV AGINAL 11/30/[address] [facility] Obstetrical Services Care Visit Obstetrical Services Care Visit [id number] 08/29/[address] [facility] Obstetrical Services Care Visit Obstetrical Services Care Visit [id number] 08/01/[address] [facility] OB Services Antepartum Care Only Subsequent Single Visit OB Services Antepartum Care Only Subsequent Single Visit [id number] 07/13/[address] [facility] Ultrasound Obstetric Limited Evaluation Ultrasound Obstetric Limited Evaluation [id number] 07/06/20 [address] [facility] OB Services Antepartum Care Only Subsequent Single Visit OB Services Antepartum Care Only Subsequent Single Visit [id number] 07/06/20 [address] [facility] Presumptive Culture For Multiple Organisms Presumptive Culture For Multiple Organisms [id number] 06/15/[address] [facility] OB Services Antepartum Care Only Subsequent Single Visit OB Services Antepartum Care Only Subsequent Single Visit [id number] 06/15/[address] [facility] OB Services Antepartum Care Only 1st Visit, With Flowsheet OB Services Antepartum Care Only 1st Visit, With Flowsheet [id number] 06/15/[address] [facility] Ultrasound Obstetric Limited Evaluation Ultrasound Obstetric Limited Evaluation [id number] 06/15/[address] [facility] OB Services Antepartum Care Only Subsequent Single Visit OB Services Antepartum Care Only Subsequent Single Visit [id number] 05/21/[address] [facility] Ultrasound Obstetric Limited Evaluation Ultrasound Obstetric Limited Evaluation [id number] 05/21/20 19 CHAMP SHIRLEY Tdap Vaccine Tdap Vaccine [id number] 05/21/20 19 MADELINE PÉREZ Tdap; Series #: 1; 0.5 mL; IM; Left Arm; Mfg: [employer] Lot: [id number]; VIS given (Werner: 01/07/15). DoD Immunization Administration One Vaccine Immunization Administration One Vaccine [id number] 05/21/[address] [facility] OB Services Antepartum Care Only Subsequent Single Visit OB Services Antepartum Care Only Subsequent Single Visit [id number] 04/18/[address] [facility] OB Services Antepartum Care Only Subsequent Single Visit OB Services Antepartum Care Only Subsequent Single Visit [id number] 03/09/20 19 YONY ORTEGA DoD Prescription & Fitting Bilateral Corneal Lenses (Not Aphakia Prescription & Fitting Bilateral Corneal Lenses (Not Aphakia 49090 03/08/[address] [facility] Determination Of Refractive State Determination Of Refractive State [id number] 03/08/[address] [facility] Ophthalmological New Patient Start Comprehensive Care Ophthalmological New Patient Start Comprehensive Care [id number] 03/08/[address] [facility] Transabd Ultrasound W/ Exam Single Or First Gestation Transabd Ultrasound W/ Exam Single Or First Gestation [id number] 03/06/20 19 GEORGINA OROZCO DoD OB Services Antepartum Care Only Subsequent Single Visit OB Services Antepartum Care Only Subsequent Single Visit [id number] 02/03/20 19 YONY ORTEGA DoD Immunization Administration One Vaccine Immunization Administration One Vaccine [id number] 12/21/[address] [facility] OB Services Antepartum Care Only 1st Visit, With Flowsheet OB Services Antepartum Care Only 1st Visit, With Flowsheet [id number] 12/21/19 19 YONY ORTEGA DoD Ultrasound Obstetric Limited Evaluation Ultrasound Obstetric Limited Evaluation 78929 12/21/19 19 YONY ORTEGA DoD Ultrasound [place] [address] 11/30/[address] [facility] Social History Combined list of available smoking, tobacco, and other social history from Department of Defense and Veterans Affairs facilities. Social History Type Response Date Comment Sour e This section is an empty social history section. DoD
[2025-03-04 21:30] LABS: Add Urine Microscopic? NO; Appearance Urine Clear (Clear); Basophils Absolute Auto 0.1 K/mm3 (0.0-0.1); Basophils Percent Auto 0.6 % (0.2-1.2); Bilirubin Urine Negative (Negative); Blood Urine Negative (Negative); Color Urine Yellow (Yellow); Eosinophils Absolute Auto 0.2 K/mm3 (0-0.3); Eosinophils Percent Auto 1.8 % (0-4.4); Glucose Urine UA Negative (Negative); Hematocrit 33.8 % (37.0-47.0); Hemoglobin 11.2 g/dL (12.0-15.0); Immature Granulocyte Absolute 0.59 K/mm3 (0.00-0.031); Immature Granulocyte Percent A 5.4 % (0-0.5); Ketones Urine Negative (Negative); Leukocyte Esterase Ur Negative LEU/UL (Negative); Lymphocytes Absolute Auto 1.83 K/mm3 (0.9-3.2); Lymphocytes Percent Auto 16.9 % (18.3-44.2); Mean Corpuscular HGB Conc 33.1 g/dl (32-36); Mean Corpuscular Hemoglobin 29.9 pg (26-34); Mean Corpuscular Volume 90.4 fl (80-100); Mean Platelet Volume 10.6 fl (7.4-10.4); Monocytes Percent Auto 9.2 % (2.6-8.5); Neutrophils Absolute Auto 7.2 K/mm3 (1.3-6.7); Neutrophils Percent Auto 66.1 % (45.5-73.1); Nitrate Urine Negative (Negative); Platelet Count Result 141 k/mm3 (150-375); Protein Urine Negative (Negative); Red Blood Count 3.74 M/mm3 (4.2-5.4); Red Cell Distribution Width 13.6 % (11.5-14.5); Specific Grav Ur 1.008 (1.001-1.035); White Blood Count 10.9 K/mm3 (4.5-10.0); pH Urine 7.5 (5.0-9.0)
[2025-03-04 21:33] LABS: Creatinine Urine 35.1 mg/dL; Total Protein Urine Random 12 mg/dL; Ur Ttl Prot Creatinine Ratio 0.34 mg/mg (0-0.20)
[2025-03-04 21:36] LABS: Alanine Aminotransferase 15 U/L (6-35); Albumin Level 3.1 g/dL (3.5-5.1); Alkaline Phosphatase 101 U/L (38-126); Anion Gap 8 mmol/L (4-12); Aspartate Amino Transferase 23 U/L (14-36); Bilirubin,Total 0.2 mg/dL (0.2-1.3); Blood Urea Nitrogen 4 mg/dL (7-17); Calcium 8.1 mg/dL (8.4-10.2); Carbon Dioxide 20 mmol/L (22-30); Chloride 107 mmol/L (98-107); Estimated CRCL calculation 230 ml/min; Estimated Glomerular Filt Rate > 60; Glucose 85 mg/dL (65-110); Potassium 3.5 mmol/L (3.4-5.0); Sodium 135 mmol/L (137-145); Uric Acid 3.7 mg/dL (2.5-7.5)
--- NOTE | 2025-03-04 22:03 | PC.NURSE ---
Called Gilles Smith CNM, update on pt, blood pressures, swelling in feet, reactive tracing with irregular contractions, and labs with blood work pending. Gilles Smith to review pending labs in the morning. Orders received to discharge pt with instructions to keep next scheduled appointment and when to return to the unit.
--- NOTE | 2025-03-04 22:48 | PC.NURSE ---
Pt discharged with instructions to keep next scheduled appointment and when to return to the unit, pt verbalizes understanding.
[2025-03-05 01:20] LABS: Platelet Estimate Slightly Decreased (Adequate)
[2025-03-05 01:21] LABS: Anisocytosis 1+; Microcytosis 1+ (NORMAL); Schistocytes None Seen
== END 2025-03-04 22:48 | disposition home or self-care (01) ==
LOC: ANHOBOP 20:37 → ANHOBPP 20:40
PROVIDERS: Advanced Practice Midwife; Visit Provider Obstetrics & Gynecology
DX: O13.9 Gestational [pregnancy-induced] hypertension without significant proteinuria, unspecified trimester (principal); Z3A.00 Weeks of gestation of pregnancy not specified
CPT/HCPCS: 36415; 59025; 80053; 81003; 82570; 84156; 84550; 85025

== ENCOUNTER 2025-03-30 02:16 | Inpatient (IN) | payer OTHER, SELFPAY ==
[2025-03-30] VITALS (142 sets, daily range): BP systolic 105–165; BP diastolic 66–109; PULSE 25–132; RESP 16–18; TEMP 36.6–37.2; O2SAT 82–100; BMI 33.2
--- OUTSIDE RECORDS SUMMARY | 2025-03-30 04:29 | XMS_ITS | Continuity of Care Document ---
Author Organization [facility] Address [address] [place] [address] Care Team Providers Care Cupola Tapper Name Role Phone ROMEOEVELIA Primary Care Provider Assessment Encounter Date Assessment Date Assessment LastModified by Organization Details LastModified Time 03/29/2025 03/29/2025 Patient is ___39 weeks . Discussed plan. Not available 03/29/2025 11:12:08 Plan of Treatment Reminders Order Date Submit Date Provider Last Modified By Organization Details Last Modified Time Details Appointments INDUCTION 2024 06:30A M Mendy Smith CNM Not available Not available Not available Lab None recorded. Referral None recorded. Procedures None recorded. Surgeries None recorded. Imaging None recorded. Medication Orders None recorded. Patient TargetsNo targets recorded. Patient InstructionsNo instructions recorded. Reason for Referral None Reported. Results Created Date Observation Date Name Description Value Unit Range Abnormal Flag Note LastModifiedBy Organization Detail LastModifiedTime 09/21/2009/21/2024 US, obste tric, nucha l trans lucen cy No observ ation record ed. [email or web address] [facility] [address], [place], [address], 09/21/2024 17:41:13 09/21/20 24 09/21/2024 US, obste tric, 1st trime ster No observ ation record ed. [email or web address] [facility] [address], [place], [address], 09/21/2024 17:41:24 09/21/20 24 09/21/2024 US, obste tric, follo w-up No observ ation record ed. [email or web address] [facility] [address], [place], [address], 09/27/2024 09:49:25 11/16/19 25 11/16/2024 US, obste tric, 2nd or 3rd trime ster No observ ation record ed. [facility] [address], [place], [address], 11/16/2024 17:07:38 11/16/19 25 11/16/2024 US, obste tric, follo w-up No observ ation record ed. [email or web address] [address], [place], [address], 12/04/2024 16:36:36 02/09/20 25 02/08/2025 US, obste tric, follo w-up No observ ation record ed. [facility] [address], [place], [address], 02/08/2025 17:20:58 02/09/20 25 02/08/2025 US, obste tric, follo w-up No observ ation record ed. [email or web address] [facility] [address], [place], [address], 02/14/2025 19:43:21 Result Notes None recorded. Problems Name Problem SNOMED Code Status Onset Date Resolution Date Notes Provider Name and Address Organization Details Recorded Time Mixed anxiety and depressiv e disorder 574014047 Active 2023 Nevin De Anda [facility], [facility] 4 10:59:08 Past history of gestation al hypertens ion 612037501 Active rec bASA daily Mendy Smith CNM [address], [place], [address], [facility] 4 14:50:02 29774470 Active [address] [facility] 4 14:46:27 Past history of gestation al hypertens ion 012404655 Active rec bASA daily Mendy Smith, CN [address], [place], [address], [facility] 4 14:50:02 Placenta circumval akiko 0388438 Active 32wk growth Carli Nunez [facility] 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 5 18:38:21 Problem Notes None recorded. Procedures Surgical History Date Name Laterality Status Provider Name and Address Organization Details Recorded Time 08/29/2024 Date of Last Pap Smear completed Nevin De Anda [facility] 09/21/2024 14:43:50 Imaging Results None recorded. Procedure Notes None recorded. Medical Equipment None Reported. Allergies Allergen ID Allergen Name Allergen Category Reaction Reaction Severity Criticality Documentation Date Start Date Code Code System Note Provider Name and Address Organization Details Recorded Time 29620 Penicilli n Not available hives moderate Not available 08/29/2024 75180 RxNorm Nevin De Anda [facility] 4 10:58:48 Medications Name Sig Start [...] 3 TIMES A DAY BY ORAL ROUTE. 03/29 completed Not Available Not Available Not Available Vitals Date Recorded Body height Body mass index (BMI) Body weight Systolic blood pressure Diastolic blood pressure Provider Name and Address Organization Details Last Updated DateTime 03/29/2025 173.99 cm 36.1 kg/m2 876700.7 6 g 126 mm[Hg] 87 mm[Hg] Nevin De Anda [facility] 10:22:48 Social History Question Answer Notes LastModified by Organizat ion Details LastModified Time Tobacco Smoking Status Former Smoker Nevin De Anda [facility] 08/29/2024 11:02:07 If You Are , What Was Your Level Of Alcohol Consumption Prior To ? Occasional [email or web address] Information not available 08/29/2024 Are You Blind Or Do You Have Difficulty Seeing? No [email or web address] Information not available 08/29/2024 What Is Your Level Of Caffeine Consumption? Occasional [email or web address] Information not available 08/29/2024 How Much Tobacco Do You Chew? None [email or web address] Information not available 08/29/2024 In The 14 Days Before Symptom Onset, Have You Had Close Contact With A Laboratory-confir med COVID-19 While That Case Was Ill? No [email or web address] Information not available 08/29/2024 In The 14 Days Before Symptom Onset, Have You Had Close Contact With A Person Who Is Under Investigation For COVID-19 While That Person Was Ill? No [email or web address] Information not available 08/29/2024 Have You Been To An Area Known To Be High Risk For COVID-19? No Information not available 08/29/2024 Are You Deaf Or Do You Have Serious Difficulty Hearing? No [email or web address] Information not available 08/29/2024 What Type Of Diet Are You Following? REGULAR [email or web address] Information not available 08/29/2024 What Is The Highest Grade Or Level Of School You Have Completed Or The Highest Degree You Have Received? BT37502-5 [email or web address] Information not available 08/29/2024 Are There Any Guns Present In Your Home? No [email or web address] Information not available 08/29/2024 Do You Use Protection During Sex? No [email or web address] Information not available 08/29/2024 Do You Use Your Seat Belt Or Car Seat Routinely? Yes Information not available 08/29/2024 Do You Have Smoke And Carbon Monoxide Detectors In Your Home? Yes [email or web address] Information not available 08/29/2024 How Much Tobacco Do You Smoke? No [email or web address] Information not available 08/29/2024 Do You Use Sunscreen Routinely? Yes [email or web address] Information not available 08/29/2024 Has Tobacco Cessation Counseling Been Provided? No Information not available 08/29/2024 Have You Used IV Drugs? No Information not available 08/29/2024 Do You Have Difficulty Walking Or Climbing Stairs? No [email or web address] Information not available 08/29/2024 Sex: Unknown Functional Status Question Answer Note LastModified by Organizat ion Details LastModified Time Do you use any illicit or recreational drugs? No Information not available 08/29/2024 Do you or have you ever used any other forms of tobacco or nicotine? No [email or web address] Information not available 08/29/2024 What is your level of alcohol consumption? None [email or web address] Information not available 08/29/2024 Are you able to walk? [email or web address] Information not available 08/29/2024 Are you able to care for yourself? 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 No Information not available 08/29/2024 What is your exercise level? Occasional Information not available 08/29/2024 Mental Status Question Answer Note LastModified by Organization D etails LastModified Time Do you feel stressed (tense, restless, nervous, or anxious, or unable to sleep at night)? [id number] [email or web address] Information not available 08/29/2024 Family History Relationship Description Onset Age of this Age Resolved Age Notes LastModified by Organization Details LastModified Time Unspecified Relation Family history unknown [email or web address] Not available 2024 09:51:49 Father Hypertensive disorder [email or web address] Not available 08/29 11:01:43 Medical History Condition [...] Disorder Y Autoimmune disease N Arthritis N Polyps N Infertility N History of abnormal pap N Acid Reflux (GERD) N Cancer N Varicosities N Stroke N Neurologic/Epilepsy N Endometriosis N High Cholesterol N Fibromyalgia N Headaches N Kidney Disease N Heart Problems N [...] SNOMED-CT Code Diagnosis ICD10 Code Diagnosis Note [id number] Mendy Smith CNM [facility] [address] [address] 03/08/2025 14:50:18 03/08/2025 15:06:46 screening 353979011 Z36.85 Gestation period, 36 weeks 36215466 Z3A.36 [id number] Mendy Smith [facility] [address],[place] [address] 03/13/2025 12:37:14 03/13/2025 13:42:46 Gestation period, 36 weeks 21886739 Z3A.36 [id number] Mendy Smith [facility] [address],[place] [address] 03/20/2025 13:59:31 03/20/2025 14:44:37 Gestation period, 37 weeks 03164722 Z3A.37 [id number] Mendy Smith [facility] [address],[place] [address] 03/29/2025 09:51:46 03/29/2025 11:17:58 Gestation period, 39 weeks 58363947 Z3A.39 Health Concerns Section Related Observation LastModified by Organization Detai ls LastModified Time None Recorded Concern Status LastModified by Organization Details LastModified Time None Recorded Payers Encounter Date Sequence Insurance Name Policy Number Policy Freeman Covered Member ID Freeman Member ID Guarantor Name 03/29/2025 1 [facility] [id number] Scottie Kutrz [id number] Suzy Kurtz 03/29/2025 2 () Suzy Kurtz [id number] Suzy Kurtz OBGyn Episode Ob Episode Information Episode Created Date Number of Fetuses Patient Bloodtype Patient rh Status Prepregnancy Weight lbs Domestic Partner Domestic Partner Phone Father Name 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 Status 09/21/20 24 1 AB Positive 189 Scottie oliver OPEN Fetus Data First Name Last Name Admitted to NICU Weight (g) Sex Living Outcome Pediatric Complications Fetus ID Race Codes Race Delivery Type [id number] Problems Problem Notes 32wk growth Problem Name Start Date End Date Resolution Snomed Code Not e Placenta circumvallata 2228392 32wk growth Group B Streptococcus carrier 03/12/2025 2132485163354 amp in labor Past history of gestational hypertension 530914593 rec bASA daily Deuce Calculation Initial Deuce Date Initial Exam Date Initial Exam Provider Initial Ultrasound Date Last Menstrual Period Date Ultra Sound Weeks Gestation 04/04/2025 08/29/2024 Mendy Smith 06/28/2024 06/28/2024 9 Eighteen To Twenty Week [...] Weight in lbs Pre/Post Dialysis Refused Weight 188.407017985874 BP Diastolic BP Location Tested BP Systolic [...] Weight in lbs Pre/Post Dialysis Refused Weight 191.653634965231 BP Diastolic BP Location Tested BP Systolic [...] Type Weight in lbs Pre/Post Dialysis Refused 192.966229225431 BP Diastolic BP Location Tested BP Systolic [...] Type Weight in lbs Pre/Post Dialysis Refused 200.496884774842 BP Diastolic BP Location Tested BP Systolic [...] Type Weight in lbs Pre/Post Dialysis Refused 209.809019475774 BP Diastolic BP Location Tested BP Systolic [...] Weight in lbs Pre/Post Dialysis Refused Weight 212.640508874963 BP Diastolic BP Location Tested BP Systolic [...] Type Weight in lbs Pre/Post Dialysis Refused 218.261953387323 BP Diastolic BP Location Tested BP Systolic [...] Weight in lbs Pre/Post Dialysis Refused Weight 221.747694517124 BP Diastolic BP Location Tested BP Systolic BP Type 85 130 Fetus Heart Rate Present Fetus Movement A Yes Comments Patient is having pain and c ontractions. reviewed precautions and education +FM f/u 2 weeks gbs collected Flowsheet Date 03/08/2025 Malik Score Blood Edema Fundus Height Fundus Units Glucose Ketones Leukocytes Nitrite Labor Signs Protein Cervic Dilation Cervic Effacement Cervic Station neg trace Type Weight in lbs Pre/Post Dialysis Refused Weight 230.612535296018 BP Diastolic BP Location Tested BP Systolic BP Type 82 129 Fetus Heart Rate Present Fetus Movement A Yes Comments patient is having some swell ing. at [facility] on tuesday . +FM GBS today cervix 1.5/thick soft, precautions and education f/u one week Flowsheet Date 03/13/2025 Malik Score Blood Edema Fundus Height Fundus Units Glucose Ketones Leukocytes Nitrite Labor Signs Protein Cervic Dilation Cervic Effacement Cervic Station neg trace 37 cm Type Weight in lbs Pre/Post Dialysis Refused 231.250210898950 BP Diastolic BP Location Tested BP Systolic BP Type 82 131 Fetus Heart Rate Present A 143 Present Fetus Movement A Yes Comments Patient is having contractio ns and swelling. +FM, declines cervical exam, education and precautions f/u one week Flowsheet Date 03/20/2025 Malik Score Blood Edema Fundus Height Fundus Units Glucose Ketones Leukocytes Nitrite Labor Signs Protein Cervic Dilation Cervic Effacement Cervic Station neg trace 38 cm 1cm Type Weight in lbs Pre/Post Dialysis Refused Weight 237.6593235041 BP Diastolic BP Location Tested BP Systolic BP Type 87 133 Fetus Heart Rate Present A 150 Present Fetus Movement A Yes Comments Patient is having contractio ns as swelling. would like to try to wait for natural labor, +FM reviewed precautions and education f/uone week Flowsheet Date 03/29/2025 Malik Score Blood Edema Fundus Height Fundus Units Glucose Ketones Leukocytes Nitrite Labor Signs Protein Cervic Dilation Cervic Effacement Cervic Station neg none 38 cm Type Weight in lbs Pre/Post Dialysis Refused Weight 241.469258523682 BP Diastolic BP Location Tested BP Systolic BP Type 87 126 Fetus Heart Rate Present A 145 Fetus Movement A Yes Comments Patient is having some contr actions. IOL next week, precautions and education +FM Menstrual History Last Menstrual Date Menses Monthly [...]
--- OUTSIDE RECORDS SUMMARY | 2025-03-30 04:29 | XMS_ITS | Continuity of Care Document ---
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 It does not include entries that were removed or entered in error. Problem Status Onset Date Problem Type Date of Resolution Comments Source Encounter for supervision of normal first , third trimester Active 05/21/2019 Condition [facility] Maternal care for other (suspected) abnormality and damage, fetus 1 Inactive 03/06/2019 Condition [facility] Allergies, Adverse Reactions, Alerts Combined list of allergies from Department of Defense and Veterans Affairs facilities. It does not include entries that were removed or entered in error. Substance Category Reaction Severity Reaction type Status Date Reported Comments Source No Known Allergies Drug allergy (disorder) active 03/08/2019 [facility] Immunizations Combined list of available immunizations from the Department of Defense and Veterans Affairs facilities. Immunization Series Date Given Administered By Site Reaction Lot Number CVX Code Drug Anatomy Professor Status Comments Source tetanus toxoid, reduced diphtheria toxoid, and acellular pertu is vaccine, adsorbed 1 2018 MADELINE PÉREZ [id number] [employer] ([facility]) complet ed tetanus toxoid, reduced diphtheri a toxoid, and acellular pertussis vaccine, adsorbed DoD Influenza, injectable, quadrivalent, preservative free 1 2018 FIDE GONZALEZ [id number] 150 [employer] ([facility]) complet ed Influenza , injectabl e, quadrival [...] ADM Date DC Date Status Disposition Source [facility]) OUTPATIENT [id number] OBI LMP ? KEVIN SUH 11/30 Released w/o Limitations [facility] [place] OUTPATIENT [id number] NOB/EDC 19 JUL 2019 YONY ORTEGA 12/21 Released w/o Limitations [facility] OUTPATIENT [id number] FIDE GONZALEZ 12/21 Released w/o Limitations [facility]( [facility]) [facility] [place] OUTPATIENT [id number] CHRISTINA; ESTELA: 07/19/19 YONY ORTEGA 02/02 Released w/o Limitations [facility] [place] TELE CONSULT [id number] Notes Entered by: YONY VÁSQUEZ 28 Feb 2019 1126 ------- ------- ------- ------- -- F/U US - LIMITED VIEW YONY ORTEGA 02/28 [facility] OUTPATIENT [id number] 20+5 WKS F/U FROM RADIOLO GEORGINA SALDAÑA W 03/06 Released w/o Limitations [facility]( [facility]) [facility] [place] OUTPATIENT [id number] eye exam RADHA LAUREN 03/08 Released w/o Limitations [facility] [place] OUTPATIENT [id number] preg ESTELA 19 Jul 2019 ROBH appt YONY ORTEGA 03/09 Released w/o Limitations [facility] [place] OUTPATIENT [id number] christina estela YONY ORTEGA 04/18 Released w/o Limitations [facility] OUTPATIENT [id number] MARCELO PÉREZ 05/21 Released w/o Limitations [facility]( [facility]) [facility] [place] OUTPATIENT [id number] srob estela sep5 CHAMP SHIRLEY 05/21 Released w/o Limitations [facility]) OUTPATIENT [id number] christina estela sep 5 YONY ORTEGA 06/15 Released w/o Limitations [facility]) TELE CONSULT [id number] Notes Entered by: Rosemarie MONTALVO 25 Jun 2019 1345 ------- ------- ------- ------- -- JESUSITA YAN 06/25 [facility]( [facility] [place] [facility]) OUTPATIENT [id number] christina estela sep 5 YUKI GUTIÉRREZ 07/06 Released w/o Limitations [facility](Ob [facility]) OUTPATIENT [id number] christina estela sep 5 YUKI RUSSO 07/13 Released w/o Limitations [facility] DIRECT TO [facility] FROM OTHER THAN ER OR APU [id number] SERGIO DELATORRE 07/17 DISCHARGED HOME [facility]) TELE CONSULT [id number] Notes Entered by: KIM ZAMUDIO 17 Jul 2019 2225 ------- ------- ------- ------- -- KIM ARELLANO 07/18 [facility]( [facility] [place] [facility](Ob [facility]etric [facility]) OUTPATIENT [id number] 2-4 week pp appt. ERICK HU 08/01 Released w/o Limitations [facility]) OUTPATIENT [id number] deliver ed sept 4/ six wks pp f/u ELLANATHAN PRADO Rosemarie 08/29 Released w/o Limitations [facility]( necology [facility]) OUTPATIENT [id number] CONTROL CONSULT DOUGIE HARMON 04/02 Released w/o Limitations [facility] OUTPATIENT [id number] BUMP ON WRIST ERICK SERRANO 07/08 Released w/o Limitations [facility]( necology [facility]) TELE CONSULT [id number] Notes Entered by: CASEY LEE 18 Sep 2020 1113 ------- ------- ------- ------- -- please call MAHESH GANN 09/18 [facility]( necology [facility]) TELE CONSULT [id number] Notes Entered by: CASEY LEE 19 Sep 2020 0821 ------- ------- ------- ------- -- Please call MAHESH GANN 09/19 [facility]( nec[facility]) OUTPATIENT [id number] Contrac eptive counseling specialist CASEY Suarez 12/25 Released w/o Limitations [facility]( [...] CARDIAC RATE, EXTERNAL APPROACH 07/20/20 19 DoD REPAIR PERINEUM MUSCLE, OPEN APPROACH 07/20/20 19 DoD DELIVERY OF PRODUCTS OF CONCEPTION, EXTERNAL APPROACH 07/20/20 19 DoD POSTOPERATIVE FOLLOW-UP VISIT, NORMALLY INCLUDED IN THE SURGICAL PACKAGE, INDICATE THAT EVALUATION & MANAGEMENT SERVICE WAS PERFORMED DURING A POSTOPERATIVE PERIOD REASON RELATED ORIGINAL PROCEDURE 07/20/20 [facility] POSTOPERATIVE FOLLOW-UP VISIT, NORMALLY INCLUDED IN THE SURGICAL PACKAGE, INDICATE THAT EVALUATION & MANAGEMENT SERVICE WAS PERFORMED DURING A POSTOPERATIVE PERIOD REASON RELATED ORIGINAL PROCEDURE 07/19/20 [facility] POSTOPERATIVE FOLLOW-UP VISIT, NORMALLY INCLUDED IN THE SURGICAL PACKAGE, INDICATE THAT EVALUATION & MANAGEMENT SERVICE WAS PERFORMED DURING A POSTOPERATIVE PERIOD REASON RELATED ORIGINAL PROCEDURE 07/18/20 [facility] SUBSEQ CARE VISIT () [EXCLS:PATIENTS WHO ARE SEEN FOR A CONDITION UNREL TO / CARE (EG,AN UP RESPIR INFECT;PATIENTS SEEN FOR CONSULTATION ONLY,NOT FOR CONT CARE)] 07/13/20 [facility] SUBSEQ CARE VISIT () [EXCLS:PATIENTS WHO ARE SEEN FOR A CONDITION UNREL TO / CARE (EG,AN UP RESPIR INFECT;PATIENTS SEEN FOR CONSULTATION ONLY,NOT FOR CONT CARE)] 07/06/20 [facility] CULTURE, PRESUMPTIVE, PATHOGENIC ORGANISMS, SCREENING ONLY 06/15/20 [facility] SUBSEQ CARE VISIT () [EXCLS:PATIENTS WHO ARE SEEN FOR A CONDITION UNREL TO / CARE (EG,AN UP RESPIR INFECT;PATIENTS SEEN FOR CONSULTATION ONLY,NOT FOR CONT CARE)] 05/21/20 [facility] IMMUNIZATION ADMINISTRATION (INCLUDES PERCUTANEOUS, INTRADERMAL, SUBCUTANEOUS, OR INTRAMUSCULAR INJECTIONS); 1 VACCINE (SINGLE OR COMBINATION VACCINE/TOXOID) 05/21/20 [facility] SUBSEQ CARE VISIT () [EXCLS:PATIENTS WHO ARE SEEN FOR A CONDITION UNREL TO / CARE (EG,AN UP RESPIR INFECT;PATIENTS SEEN FOR CONSULTATION ONLY,NOT FOR CONT CARE)] 04/18/20 [facility] SUBSEQ CARE VISIT () [EXCLS:PATIENTS WHO ARE SEEN FOR A CONDITION UNREL TO / CARE (EG,AN UP RESPIR INFECT;PATIENTS SEEN FOR CONSULTATION ONLY,NOT FOR CONT CARE)] 03/09/20 [facility] DETERMINATION OF REFRACTIVE STATE 03/08/20 [facility] ULTRASOUND, UTERUS, REAL TIME WITH IMAGE DOCUMENTATION, AND MATERNAL EVALUATION PLUS DETAILED ANATOMIC EXAMINATION,TRANSABD OMINAL APPROACH; SINGLE OR FIRST GESTATION 03/06/20 [facility] SUBSEQ CARE VISIT () [EXCLS:PATIENTS WHO ARE SEEN FOR A CONDITION UNREL TO / CARE (EG,AN UP RESPIR INFECT;PATIENTS SEEN FOR CONSULTATION ONLY,NOT FOR CONT CARE)] 02/03/20 [facility] INFLUENZA VIRUS VACCINE, QUADRIVALENT (IIV4), SPLIT VIRUS, PRESERVATIVE FREE, 0.5 ML DOSAGE, FOR INTRAMUSCULAR USE 12/21/19 19 [facility] PRENAT FLW SHEET DOC,MED REC,1ST PRENAT VIS (DOC INC MIN BP,WT,URINE PROT,UTER SZ,FET HRT TONE,&EST DATE DEL). REP ALSO:DATE VIS &,IN SEP FLD,DATE LMP (NOTE:IF REP 0501F,NOT NECESSARY TO REP 0500F) 12/21/19 [facility] ULTRASOUND, UTERUS, REAL TIME WITH IMAGE DOCUMENTATION,TRANSV AGINAL 11/30/19 19 [facility] Obstetrical Services Care Visit Obstetrical Services Care Visit 0503F 08/29/20 19 NATHAN JARAMILLO [facility] Obstetrical Services Care Visit Obstetrical Services Care Visit 0503F 08/01/20 19 ERICK HU [facility] OB Services Antepartum Care Only Subsequent Single Visit OB Services Antepartum Care Only Subsequent Single Visit 0502F 07/13/20 19 YUKI RUSSO [facility] Ultrasound Obstetric Limited Evaluation Ultrasound Obstetric Limited Evaluation 59299 07/06/20 19 YUKI GUTIÉRREZ [facility] OB Services Antepartum Care Only Subsequent Single Visit OB Services Antepartum Care Only Subsequent Single Visit 0502F 07/06/20 19 YUKI GUTIÉRREZ [facility] Presumptive Culture For Multiple Organisms Presumptive Culture For Multiple Organisms 44233 06/15/20 19 YONY ORTEGA [facility] OB Services Antepartum Care Only Subsequent Single Visit OB Services Antepartum Care Only Subsequent Single Visit 0502F 06/15/20 19 YONY ORTEGA [facility] OB Services Antepartum Care Only 1st Visit, With Flowsheet OB Services Antepartum Care Only 1st Visit, With Flowsheet 0501F 06/15/20 19 YONY ORTEGA [facility] Ultrasound Obstetric Limited Evaluation Ultrasound Obstetric Limited Evaluation 70867 06/15/20 19 YONY ORTEGA [facility] OB Services Antepartum Care Only Subsequent Single Visit OB Services Antepartum Care Only Subsequent Single Visit 0502F 05/21/20 19 CHAMP SHIRLEY [facility] Ultrasound Obstetric Limited Evaluation Ultrasound Obstetric Limited Evaluation 91706 05/21/20 19 CHAMP SHIRLEY Tdap Vaccine Tdap Vaccine 93212 05/21/20 19 MADELINE PÉREZ Tdap; Series #: 1; 0.5 mL; IM; Left Arm; Mfg: [employer]; Lot: [id number]; VIS given (Werner: 01/07/15). DoD Immunization Administration One Vaccine Immunization Administration One Vaccine 71231 05/21/20 19 MADELINE PÉREZ [facility] OB Services Antepartum Care Only Subsequent Single Visit OB Services Antepartum Care Only Subsequent Single Visit 0502F 04/18/20 19 YONY ORTEGA [facility] OB Services Antepartum Care Only Subsequent Single Visit OB Services Antepartum Care Only Subsequent Single Visit 0502F 03/09/20 19 YONY ORTEGA DoD Prescription & Fitting Bilateral Corneal Lenses (Not Aphakia Prescription & Fitting Bilateral Corneal Lenses (Not Aphakia 48257 03/08/20 19 BEVERLY BROWNE [facility] Determination Of Refractive State Determination Of Refractive State 81469 03/08/20 19 BEVERLY BROWNE [facility] Ophthalmological New Patient Start Comprehensive Care Ophthalmological New Patient Start Comprehensive Care 64026 03/08/20 19 BEVERLY BROWNE [facility] Transabd Ultrasound W/ Exam Single Or First Gestation Transabd Ultrasound W/ Exam Single Or First Gestation 83448 03/06/20 19 GEORGINA OROZCO DoD OB Services Antepartum Care Only Subsequent Single Visit OB Services Antepartum Care Only Subsequent Single Visit 0502F 02/03/20 19 YONY ORTEGA DoD Immunization Administration One Vaccine Immunization Administration One Vaccine 97161 12/21/19 19 FIDE GONZALEZ [facility] OB Services Antepartum Care Only 1st Visit, With Flowsheet OB Services Antepartum Care Only 1st Visit, With Flowsheet 0501F 12/21/19 19 YONY ORTEGA DoD Ultrasound Obstetric Limited Evaluation Ultrasound Obstetric Limited Evaluation 66926 12/21/19 19 YONY ORTEGA DoD Ultrasound Trans[place] [address] 11/30/19 19 KEVIN ALICEA [facility] Social History Combined list of available smoking, tobacco, and other social history from Department of Defense and Veterans Affairs facilities. Social History Type Response Date Comment Sour e This section is an empty social history section. DoD
--- OUTSIDE RECORDS SUMMARY | 2025-03-30 04:29 | XMS_ITS | Encounter Summary ---
Author Organization [facility] Address [address] [place] [address] Phone Care Team Providers Care Running Instructor Name Role Phone [facility] PAC Primary Care Pro vider Reason for Visit * Reason Comments Medication Refill Encounter Details Date Type Department Care Team (Late st Contact Info) Description 08/29/2022 Refill [facility] - Internal Medicine - [place] [address] [facility] [place] [id number] [address] Mccullough, PAC [address] [place] [address] Medication Refill Social History Tobacco Use Types [...] Ramos 06/30/[address] [facility]cc[facility] PAC [facility] [place] Showing recent visits within past 182 days [...] Description 08/05/2025 10:15 AM CDT Office Visit [facility] Medical Group - Internal Medicine - [place] [address] [place] [address] [address] PAC [address] [place] [address] documented as of this encounter Goals Goal Patient Goal Type Associated Problems Recent Progress Patient-Stated? Author wants to feel better. Behavioral Health On track( 023 8:13 AM THIRD OFFICER) Yes Leisa Yu LCSW Note: will gain insight regarding impact of trauma and gain relief from traumatic stress. Goal Reviewed with: patient today Readiness to change: Ready to change Department associated with goal: [facility] Steps to achieve [...] 19 10/05/2022 10/05/2022 10/15/2022 12:1 9 AM THIRD OFFICER Influenza 10/05/2022 10/05/2022 10/12/2022 12:1 6 AM THIRD OFFICER Respiratory Rule-Out 01/02/2025 01/02/2025 025 8:30 AM THIRD OFFICER COVID - 19 01/02/2025 01/02/2025 01/02/2025 8:29 AM THIRD OFFICER Assessment Noted Time PHQ-9 Depression Total Score: 11 022 11:00 AM CDT documented as of this encounter Care Teams Running Instructor Relationship Specialty Start Date End Date Ct Mccullough, LUZ ELENA [address] [place] [address] PCP - General Physician Parking Regulation Enforcement Officer 06/29/22 documented as of this encounter
--- OUTSIDE RECORDS SUMMARY | 2025-03-30 04:29 | XMS_ITS | Data Portability ---
Author Organization [facility] [place] Address [address] [place] [address] Care Team Providers Care Income Tax Manager Name Role Phone EVELIA WALTERS Primary Care Provider Assessment Encounter Date Assessment Date Assessment LastModified by Organization Details LastModified Time 02/22/2025 02/22/2025 Patient is __34_weeks . Discussed plan. Not available 02/22/2025 14:31:37 03/08/2025 03/08/2025 Patient is __36 weeks_weeks . Discussed plan. Not available 03/08/2025 15:05:37 03/13/2025 03/13/2025 Patient is _36__weeks . Discussed plan. [email or web address] Not available 03/13/2025 13:41:26 03/20/2025 03/20/2025 Patient is _37__weeks . Discussed plan. Not available 03/20/2025 14:43:46 03/29/2025 03/29/2025 Patient is ___39 weeks . Discussed plan. [email or web address] Not available 03/29/2025 11:12:08 Plan of Treatment Reminders Order Date Submit Date Provider Last Modified By Organization Details Last Modified Time Details Appointments INDUCTION 2024 06:30A M Mendy Smith CNM Not available Not available Not available Lab streptoco ccus group B, culture, unspecifi ed specimen 2024 025 [facility] (Lab), [address], [place], [address], 03/12/2025 17:48:12 Referral None recorded. Procedures None recorded. Surgeries None recorded. Imaging None recorded. Medication Orders None recorded. Patient TargetsNo targets recorded. Patient InstructionsNo instructions recorded. Reason for Referral None Reported. Results Created Date Observation Date Name Description Value Unit Range Abnormal Flag Note LastModifiedBy Organization Detail LastModifiedTime 03/08/2003/08/2025 CULTU RE: GROUP B STREP SCREE N, REFLE X SUSCE PTIBI LITY result report SEE RESULT S BELOW abnormal Test: Cultu re: Group B Strep , Refle x Susce ptibi lity ([facility]/ [facility]/K H/[facility] ) Speci men Sourc e: Vagin a/Rec daniel Speci men Type: Vagin al/Re ctal Speci men Date: 2024 1401 Resul t Date: 2024 1644 Resul t Statu s: Final resul t Abnor mal: Yes Resul ting Lab: [facility] [address] [facility] [address] Tel: CULTU RE ----- ----- ----- --- Posit theresa for Strep tococ cus agala ctiae (Grou p B) (Abno rmal) Clind amyci n susce ptibl e, eryth romyc in resis tant. The clind amyci n induc tion test ( D-t est ) is negat theresa, there fore clind amyci n shoul d be clini puma effec tive again st this isola te. Not Available [facility] (Lab) [address] [facility], [place], [address], 03/12/2025 17:48:12 02/09/2002/08/2025 US, ann-marie del cid w-up No observ ation record ed. [facility] [address], [place], [address], 02/08/2025 17:20:58 03/28/20 25 02/08/2025 US, obste tric, follo w-up No observ ation record ed. [facility] [address], [place], [address], 02/14/2025 19:43:21 Result Notes None recorded. Problems Name Problem SNOMED Code Status Onset Date Resolution Date Notes Provider Name and Address Organization Details Recorded Time Mixed anxiety and depressiv e disorder 038458484 Active 2023 Nevin morales, [facility] 4 10:59:08 Past history of gestation al hypertens ion 189361994 Active rec bASA daily Mendy Smith CNM [address], [place], [address], [facility] 4 14:50:02 97192531 Active 2023 Nevin morales, [facility] 4 14:46:27 Past history of gestation al hypertens ion 131665950 Active rec bASA daily Mendy Smith CNM [address], [place], [address], [facility] 4 14:50:02 Placenta circumval akiko 4307497 Active 32wk growth Carliconner morales [facility] 5 17:16:27 Group B Streptoco ccus carrier 442924760090 3 Active 2024 amp in labor Carli Enrique morales [facility] 5 18:38:21 Problem Notes None recorded. Procedures Surgical History Date Name Laterality Status Provider Name and Address Organization Details Recorded Time 08/29/2024 Date of Last Pap Smear completed Nevin De Anda [facility] 09/21/2024 14:43:50 Imaging Results Imaging Date Name Status LastModified by Organiz ation Details LastModified Time 02/08/2025 US, obstetric, follow-up completed [facility] [address], [place], [address], 02/08/2025 17:20:58 02/08/2025 US, obstetric, follow-up completed [facility] [address], [place], [address], 02/14/2025 19:43:21 Procedure Notes None recorded. Medical Equipment None Reported. Allergies Allergen ID Allergen Name Allergen Category Reaction Reaction Severity Criticality Documentation Date Start Date Code Code System Note Provider Name and Address Organization Details Recorded Time 53189 Penicilli n Not available hives moderate Not available 08/29/2024 50935 RxNorm Nevin De Anda [facility] 10:58:48 Medications Name Sig Start Date Stop [...] Updated DateTime 02/22/2025 173.99 cm 33.1 kg/m2 388859.9 1 g 130 mm[Hg] 85 mm[Hg] Nevin De Anda [facility] 14:29:18 Date Recorded Body height Body mass index (BMI) Body weight Systolic blood pressure Diastolic blood pressure Provider Name and Address Organization Details Last Updated DateTime 03/08/2025 173.99 cm 34.5 kg/m2 740887.2 5 g 129 mm[Hg] 82 mm[Hg] Nevin De Anda [facility] 14:57:50 Date Recorded Body weight Body mass index (BMI) Body height Systolic blood pressure Diastolic blood pressure Provider Name and Address Organization Details Last Updated DateTime 03/13/2025 544409.8 3747 g 34.6 kg/m2 173.99 cm 131 mm[Hg] 82 mm[Hg] Nevin De Anda [facility] 13:00:56 Date Recorded Body height Body mass index (BMI) Body weight Systolic blood pressure Diastolic blood pressure Provider Name and Address Organization Details Last Updated DateTime 03/20/2025 173.99 cm 35.5 kg/m2 500092.3 9 g 133 mm[Hg] 87 mm[Hg] Nevin De Anda [facility] 14:27:00 Date Recorded Body height Body mass index (BMI) Body weight Systolic blood pressure Diastolic blood pressure Provider Name and Address Organization Details Last Updated DateTime 03/29/2025 173.99 cm 36.1 kg/m2 202664.7 6 g 126 mm[Hg] 87 mm[Hg] Nevin De Anda [facility] 10:22:48 Social History Question Answer Notes LastModified by Organizat ion Details LastModified Time Tobacco Smoking Status Former Smoker Nevin De Anda [facility] 08/29/2024 11:02:07 If You Are , What Was Your Level Of Alcohol Consumption Prior To ? Occasional [email or web address] Information not available 08/29/2024 Are You Blind Or Do You Have Difficulty Seeing? No [email or web address] Information not available 08/29/2024 What Is Your Level Of Caffeine Consumption? Occasional [email or web address] Information not available 08/29/2024 How Much Tobacco Do You Chew? None [email or web address] Information not available 08/29/2024 In The 14 Days Before Symptom Onset, Have You Had Close Contact With A Laboratory-confir med COVID-19 While That Case Was Ill? No Information not available 08/29/2024 In The 14 Days Before Symptom Onset, Have You Had Close Contact With A Person Who Is Under Investigation For COVID-19 While That Person Was Ill? No [email or web address] Information not available 08/29/2024 Have You Been To An Area Known To Be High Risk For COVID-19? No [email or web address] Information not available 08/29/2024 Are You Deaf Or Do You Have Serious Difficulty Hearing? No [email or web address] Information not available 08/29/2024 What Type Of Diet Are You Following? REGULAR [email or web address] Information not available 08/29/2024 What Is The Highest Grade Or Level Of School You Have Completed Or The Highest Degree You Have Received? WE21908-2 [email or web address] Information not available 08/29/2024 Are There Any Guns Present In Your Home? No [email or web address] Information not available 08/29/2024 Do You Use Protection During Sex? No Information not available 08/29/2024 Do You Use Your Seat Belt Or Car Seat Routinely? Yes [email or web address] Information not available 08/29/2024 Do You Have Smoke And Carbon Monoxide Detectors In Your Home? Yes [email or web address] Information not available 08/29/2024 How Much Tobacco Do You Smoke? No Information not available 08/29/2024 Do You Use Sunscreen Routinely? Yes [email or web address] Information not available 08/29/2024 Has Tobacco Cessation Counseling Been Provided? No [email or web address] Information not available 08/29/2024 Have You Used IV Drugs? No Information not available 08/29/2024 Do You Have Difficulty Walking Or Climbing Stairs? No [email or web address] Information not available 08/29/2024 Sex: Unknown Functional Status Question Answer Note LastModified by Organizat ion Details LastModified Time Do you use any illicit or recreational drugs? No [email or web address] Information not available 08/29/2024 Do you or have you ever used any other forms of tobacco or nicotine? No [email or web address] Information not available 08/29/2024 What is your level of alcohol consumption? None [email or web address] Information not available 08/29/2024 Are you able to walk? YESWOREST [email or web address] Information not available 08/29/2024 Are you able to care for yourself? 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 No [email or web address] Information not available 08/29/2024 What is your exercise level? Occasional [email or web address] Information not available 08/29/2024 Mental Status Question Answer Note LastModified by Organization D etails LastModified Time Do you feel stressed (tense, restless, nervous, or anxious, or unable to sleep at night)? HY6068-4 [email or web address] Information not available 08/29/2024 Family History Relationship Description Onset Age of this Age Resolved Age Notes LastModified by Organization Details LastModified Time Unspecified Relation Family history unknown Not available 2024 09:51:49 Father Hypertensive disorder [email or web address] Not available 08/29 11:01:43 Medical History Condition Response Allergies (Food, seasonal, environmental ) N Other N Breast Cancer N Drug/Latex Allergies/Reactions N Blood Transfusion N Dermatologic Disorders N Lung Disease N Defects or Inherited Disease N Breast [...] SNOMED-CT Code Diagnosis ICD10 Code Diagnosis Note [id number] Diaz Lala MD [place] [address],[place] [address] 08/29/2024 09:45:14 08/29/2024 10:39:41 [id number] [facility] [address],[place] [address] 08/29/2024 09:45:32 08/29/2024 11:21:45 Amenorrhea 16381249 N91.2 Gynecologi c examination 39674832 Z11.51 Z11.3 [id number] Diaz Lala MD [place] [address],[place] [address] 09/21/2024 13:55:49 09/21/2024 14:36:57 screening 497539447 Z36.82 Z3A.12 [id number] [facility] [address],[place] [address] 09/21/2024 13:56:07 09/21/2024 15:00:47 Gestation period, 12 weeks 69480801 Z3A.12 Venereal d isease screening 396767029 Z11.3 Routine an tenatal care 035577652 Z34.90 Nausea and vomiting 1693 1999 R11.2 [id number] Mendy Smith CNM [place] [address],[place] [address] 10/19/2024 09:30:54 10/19/2024 10:21:28 Gestation period, 16 weeks 87340698 Z3A.16 [id number] Diaz Lala MD [place] [address],[place] [address] 11/16/2024 14:06:51 11/16/2024 15:24:38 screening for malformation 860729589 Z36.3 Z3A.20 [id number] Mendy Smith [facility] [address],[place] [address] 11/16/2024 14:07:41 11/16/2024 15:53:32 Gestation period, 20 weeks 90937540 Z3A.20 [id number] Mendy Smith [facility] [address],[place] [address] 12/12/2024 14:14:02 12/12/2024 14:59:01 Gestation period, 23 weeks 19445232 Z3A.23 [id number] Mendy Smith [facility] [address],[place] [address] 01/11/2025 09:36:41 01/11/2025 10:58:31 Gestation period, 28 weeks 05945458 Z3A.28 [id number] Mendy Smith [facility] [address],[place] [address] 01/25/2025 11:08:05 01/25/2025 11:56:53 Gestation period, 30 weeks 01296244 Z3A.30 [id number] Diaz Lala MD [place] [address],[place] [address] 02/08/2025 10:55:15 02/08/2025 12:10:25 Past history of gestational hypertension 559078935 Z87.59 O43.113 Z3A.32 [id number] [facility] [address],[place] [address] 02/08/2025 10:55:36 02/08/2025 12:39:02 Gestation period, 32 weeks 5553010 Z3A.32 [id number] [facility] [address],[place] [address] 02/22/2025 14:17:07 02/22/2025 14:37:08 Gestation period, 34 weeks 14892891 Z3A.34 [id number] Mendy Smith [facility] [address],[place] [address] 03/08/2025 14:50:18 03/08/2025 15:06:46 screening 829544495 Z36.85 Gestation period, 36 weeks 55779993 Z3A.36 [id number] Mendy Smith [facility] [address],[place] [address] 03/13/2025 12:37:14 03/13/2025 13:42:46 Gestation period, 36 weeks 41940502 Z3A.36 [id number] Mendy Smith [facility] [address],[place] [address] 03/20/2025 13:59:31 03/20/2025 14:44:37 Gestation period, 37 weeks 29029393 Z3A.37 [id number] Mendy Smith [facility] [address],[place] [address] 03/29/2025 09:51:46 03/29/2025 11:17:58 Gestation period, 39 weeks 65723677 Z3A.39 Health Concerns Section Related Observation LastModified by Organization Detai ls LastModified Time None Recorded Concern Status LastModified by Organization Details LastModified Time None Recorded Advance Directives Directive None Recorded Payers Encounter Date Sequence Insurance Name Policy Number Policy Freeman Covered Member ID Freeman Member ID Guarantor Name 02/22/2025 1 [facility] [id number] Scottie Kurtz [id number] Suzy Kurtz 02/22/2025 2 ESPERANZA () Suzy Kurtz [id number] Suzy Kurtz 03/08/2025 1 [facility] [id number] Scottie Kurtz [id number] Suzy Kurtz 03/08/2025 2 [employer] () Suzy Kurtz [id number] Suzy Kurtz 03/13/2025 1 [facility] [id number] Scottie Kurtz [id number] Suzy Kurtz 03/13/2025 2 () Suzy Kurtz [id number] Suzy Kurtz 03/20/2025 1 [facility] [id number] Scottie Kurtz [id number] Suzy Kurtz 03/20/2025 2 () Suzy Kurtz [id number] Suzy Kurtz 03/29/2025 1 [facility] [id number] Scottie Jerardo [id number] Suzy Kurtz 03/29/2025 2 () Suzy Kurtz [id number] Suzy Kurtz OBGyn Episode Ob Episode Information Episode Created Date Number of Fetuses Patient Bloodtype Patient rh Status Prepregnancy Weight lbs Domestic Partner Domestic Partner Phone Father Name Manager Engine Status 08/29/20 24 1 CLOSED Fetus Data First Name Last Name Admitted to NICU Weight (g) Sex Living Outcome Pediatric Complications Fetus ID Race Codes Race Delivery Type 3826.95 5704 M Full Term 92030 Vaginal Delivery Deuce Calculation Initial Deuce Date [...] Domestic Partner Domestic Partner Phone Father Name Manager Engine Status 09/21/20 24 1 AB Positive 189 Scottie Childs benito OPEN Fetus Data First Name Last Name Admitted to NICU Weight (g) Sex Living Outcome Pediatric Complications Fetus ID Race Codes Race Delivery Type [id number] Problems Problem Notes 32wk growth Problem Name Start Date End Date Resolution Snomed Code Not e Placenta circumvallata 3582366 32wk growth Group B Streptococcus carrier 03/12/2025 2799509103851 amp in labor Past history of gestational hypertension 908044638 rec bASA daily Deuce Calculation Initial Deuce [...] Weight in lbs Pre/Post Dialysis Refused Weight 188.101423998005 BP Diastolic BP Location Tested BP Systolic [...] Weight in lbs Pre/Post Dialysis Refused Weight 191.821153650114 BP Diastolic BP Location Tested BP Systolic [...] Type Weight in lbs Pre/Post Dialysis Refused 192.464916866306 BP Diastolic BP Location Tested BP Systolic [...] Type Weight in lbs Pre/Post Dialysis Refused 200.475658452673 BP Diastolic BP Location Tested BP Systolic [...] Type Weight in lbs Pre/Post Dialysis Refused 209.097513013208 BP Diastolic BP Location Tested BP Systolic [...] Weight in lbs Pre/Post Dialysis Refused Weight 212.120480652434 BP Diastolic BP Location Tested BP Systolic [...] Type Weight in lbs Pre/Post Dialysis Refused 218.302281806206 BP Diastolic BP Location Tested BP Systolic [...] Weight in lbs Pre/Post Dialysis Refused Weight 221.445808284089 BP Diastolic BP Location Tested BP Systolic [...] Weight in lbs Pre/Post Dialysis Refused Weight 230.904280107815 BP Diastolic BP Location Tested BP Systolic [...] Type Weight in lbs Pre/Post Dialysis Refused 231.989665335625 BP Diastolic BP Location Tested BP Systolic [...] Weight in lbs Pre/Post Dialysis Refused Weight 237.7647398940 BP Diastolic BP Location Tested BP Systolic [...] Weight in lbs Pre/Post Dialysis Refused Weight 241.255169920095 BP Diastolic BP Location Tested BP Systolic [...]
--- OUTSIDE RECORDS SUMMARY | 2025-03-30 04:29 | XMS_ITS | Clinical Summary ---
Author Organization [facility] Address [address] [place] [address] Phone Care Team Providers Care Citrix Administrator Name Role Phone [facility] Primary Care Pro vider Allergies Active Allergy Reactions Criticality Noted Date Comments Penicillins Hives Low 06/30/2022 Medications escitalopram (LEXAPRO) 10 MG Tablet Take 1 Tablet by mouth daily. 90 Tablet 1 12/17/2024 Active Active Problems Estimated Date of Delivery Comme nts Yes 05/03/2025 No known active problems Encounters Date Type Department Care Team Description 01/25/2025 9:00 AM CDT Immunization [facility] Internal [facility] [address] [place] [address] Encounter for immunization (Primary Dx) Discharge Disposition: Discharged to home or Selfcare 01/25/2025 Travel 01/02/2025 8:45 AM MATERIAL FLOW ENGINEER Office Visit [facility] [address] [place] [address] Leonel Graham MD Acute non-recurrent sinusitis, unspecified location (Primary Dx); Stuffy and runny nose; Sinus pain; Acute nonintractable headache, unspecified headache type Discharge Disposition: Discharged to home or Selfcare 01/02/2025 Travel from Last 3 Months Immunizations Immunization Administration Dates Next Due Covid-19, Mrna, Lnp-s, Pf, 30 Mcg/0.3 Ml Dose (Robert saunders) 04/21/2021,03/30/2021 Influenza Vaccine, Quadrivalent, PF 12/21/2018 Influenza,Split [...] drink = 0.6 oz pur e alcohol) [facility] Utilities Answer Date Recorded In the past 12 months has e [employer], gas, oil, or water [employer] threatened to shut off services in your [...] 08/01/2024 How often do you attend chur ch or pentecostalism services? Never 08/01/2024 Do you belong to any clubs o r organizations such as gnosticism groups, unions, fraternal or athletic groups, or [...] Total Score - Questions 1-9 0 12/15 [facility] - Occupational Stress Questionnaire Answer Date [...] place to sleep or slept in a senior care (including now)? No 03/09/2024 Housing Stability Vital Sign Answer Say e Recorded In the last 12 months, was t here a time when you were not able to pay the mortgage or rent on time? No 08/01/2024 In the past 12 months, how m any times have you moved where you were living? 0 08/01/2024 At any time in the past 12 m [facility], were you homeless or living in a senior care (including now)? No 08/01/2024 Education Answer Date [...] Comments Blood Pressure 130/70 01/02/2025 8:34 AM MATERIAL FLOW ENGINEER Pulse 110 01/02/2025 8:34 AM MATERIAL FLOW ENGINEER Temperature 36.4 C (97.5 F) 01/02/2025 8:34 AM MATERIAL FLOW ENGINEER Respiratory Rate 12 08/03/2024 10:03 AM CDT Oxygen Saturation 99% 01/02/2025 8:34 AM MATERIAL FLOW ENGINEER Inhaled Oxygen Concentration - - Weight 93.9 kg (207 lb) 01/02/2025 8:34 AM MATERIAL FLOW ENGINEER Height 180.3 cm (5' 11 ) 01/02/2025 8:34 AM MATERIAL FLOW ENGINEER Body Mass Index 28.87 01/02/2025 8:34 AM MATERIAL FLOW ENGINEER Plan of Treatment Upcoming Encounters Date Type Department Care Team (Late st Contact Info) Description 08/05/2025 10:15 AM CDT Office Visit [facility] [place] [address] [place] [id number] [address] [facility], PAC [address] [place] [address] Health Maintenance Due Date Last Done Comments Hepatitis B Immunization (1 of 3 - 19+ 3-dose series) 2013 Pap Smear [...] Behavioral Health On track( 023 8:13 AM MATERIAL FLOW ENGINEER) Yes Leisa Yu, ANILINE PRESS WORKER Note: will gain insight regarding impact of trauma and gain relief from traumatic stress. Goal Reviewed with: patient today Readiness to change: Ready to change Department associated with goal: [facility] Steps to achieve goal: will share personal trauma story in counseling/psychotherapy sessions. will learn/identify how trauma has impacted personal life, physical health and behavioral health. will identify and practice, at least two, skills/activities/routines, to gain relief from the impact of trauma. Procedures Procedure Name Priority Date/Time Associated Diagnosis Comments POC SARS-COV-2 BY MOLECULAR Routine 01/02/2025 8:20 AM MATERIAL FLOW ENGINEER Stuffy and runny nose Sinus pain Acute nonintractable headache, unspecified headache type POC INFLUENZA A AND B BY MOLECULAR Routine 01/02/2025 8:20 AM MATERIAL FLOW ENGINEER Stuffy and runny nose Sinus pain Acute nonintractable headache, unspecified headache type from Last 3 Months Results * POC SARS-COV-2 BY MOLECULAR (01/02/2025 8:20 AM MATERIAL FLOW ENGINEER) SARSCOV2 Negative Negative, INVALID PROCEDURE CONTROL Valid 01/02/2025 8:20 AM MATERIAL FLOW ENGINEER Leonel Graham MD POINT OF CARE TESTING (MANU AL) Final Result * POC INFLUENZA A AND B BY MOLECULAR (01/02/2025 8:20 AM MATERIAL FLOW ENGINEER) INFLUENZA A RNA Negative Negative, Invalid INFLUENZA B RNA Negative Negative, Invalid PROCEDURE CONTROL Valid 01/02/2025 8:20 AM MATERIAL FLOW ENGINEER Leonel Graham MD POINT OF CARE TESTING (MANU AL) Final Result from Last 3 Months Insurance MEDICAID [facility] Care Teams Citrix Administrator Relationship Specialty Start Date End Date Ct Mccullough [facility] [address] [place] [address] PCP - General Physician Ribbon Blocker 06/29/22
[2025-03-30] MEDS: LACTATED RINGERS 1,000 ML 125 ML IV CONT (05:14)
[2025-03-30] MEDS: CLINDAMYCIN 900 MG/D5W 50 ML 900 MG/50 ML PIGGYBACK 50 MG IVPB (05:15)
[2025-03-30 05:23] LABS: Basophils Absolute Auto 0.1 K/mm3 (0.0-0.1); Basophils Percent Auto 0.6 % (0.2-1.2); Eosinophils Absolute Auto 0.2 K/mm3 (0-0.3); Eosinophils Percent Auto 1.5 % (0-4.4); Hematocrit 36.1 % (37.0-47.0); Hemoglobin 12.3 g/dL (12.0-15.0); Immature Granulocyte Absolute 0.37 K/mm3 (0.00-0.031); Immature Granulocyte Percent A 3.2 % (0-0.5); Lymphocytes Absolute Auto 1.69 K/mm3 (0.9-3.2); Lymphocytes Percent Auto 14.5 % (18.3-44.2); Mean Corpuscular HGB Conc 34.1 g/dl (32-36); Mean Corpuscular Hemoglobin 29.9 pg (26-34); Mean Corpuscular Volume 87.6 fl (80-100); Mean Platelet Volume 11.2 fl (7.4-10.4); Monocytes Absolute Auto 0.9 K/mm3 (0.1-0.6); Neutrophils Absolute Auto 8.4 K/mm3 (1.3-6.7); Neutrophils Percent Auto 72.2 % (45.5-73.1); Platelet Count Result 141 k/mm3 (150-375); Red Blood Count 4.12 M/mm3 (4.2-5.4); Red Cell Distribution Width 13.2 % (11.5-14.5); White Blood Count 11.6 K/mm3 (4.5-10.0)
--- NOTE | 2025-03-30 05:25 | LDADM ---
This patient, Suzy Kurtz, was admitted to Labor/Delivery/Recovery 107 on 03/30/25 at 02:16. Plans for labor, pain management and were discussed with patient. Patient/family oriented to hospital policies and general routines including ID bracelet, bed and alarms, visiting hours, pain management, procedures, bathroom and other care routines, personal items, smoking policy, room service/diet and guest tray routines, infant security routines, and visiting hours. Patient/Family are encouraged to report perceived risks to care and to ask questions if they do not understand what they are told or what they should do. See OBIX for further documentation.
[2025-03-30 06:01] LABS: Syphilis IgG/IgM Antibody Negative (Negative)
[2025-03-30 06:15] LABS: HIV 1/2 Ab P24 Ag Result Negative (Negative)
--- NOTE | 2025-03-30 06:58 | WPDANESEPP ---
Anes - Eval Pre Procedure Procedure: labor epidural Date/Time: 03/30/25 06:58 Surgeon: arlet Preop Diagnosis: pain during labor Pre Op Diagnosis: IOL Patient Data Age: 29 Gender: F Height: 1.8 m Weight: 108 kg Last Vital Signs Pulse 91 03/30/25 06:55 BP 160/84 H 03/30/25 06:55 Pulse Ox 98 03/30/25 06:55 Allergies Allergy/AdvReac Type Severity Reaction Status Date / Time Penicillins Allergy Hives Verified 03/06/25 12:41 Home Medications ?Medication ?Instructions ?Recorded ?Confirmed ?Type aspirin 81 mg tablet 81 mg PO DAILY 03/06/25 03/06/25 History excitalopram 03/06/25 History [id number] 1 mg tablet PO 03/06/25 History tablet Laboratory Tests 03/30/25 05:02 WBC 11.6 H K/mm3 (4.5-10.0) RBC 4.12 L M/mm3 (4.2-5.4) Hgb 12.3 g/dL (12.0-15.0) Hct 36.1 L % (37.0-47.0) MCV 87.6 fl (80-100) MCH 29.9 pg (26-34) MCHC 34.1 g/dl (32-36) RDW 13.2 % (11.5-14.5) Plt Count 141 L k/mm3 (150-375) MPV 11.2 H fl (7.4-10.4) Immature Gran % (Auto) 3.2 H % (0-0.5) Neut % (Auto) 72.2 % (45.5-73.1) Lymph % (Auto) 14.5 L % (18.3-44.2) [place] % (Auto) 8.0 % (2.6-8.5) Eos % (Auto) 1.5 % (0-4.4) Baso % (Auto) 0.6 % (0.2-1.2) Lymph # (Auto) 1.69 K/mm3 (0.9-3.2) [place] # (Auto) 0.9 H K/mm3 (0.1-0.6) Eos # (Auto) 0.2 K/mm3 (0-0.3) Baso # (Auto) 0.1 K/mm3 (0.0-0.1) Abs Immat Gran (auto) 0.37 H K/mm3 (0.00-0.031) Absolute Neuts (auto) 8.4 H K/mm3 (1.3-6.7) Absolute Nucleated RBC 0.000 K/mm3 (0.0-0.012) Nucleated RBC % 0.0 % (0.0-0.2) Syphilis IgG/IgM Ab Negative (Negative) HIV 1&2 Ab/P24 Ag 4thGn Negative (Negative) Blood Type AB Positive Antibody Screen Pending Patient hx anesthesia problems: none Family hx anesthesia problems: none Results Review: All pre-operative results and documents have been reviewed as part of the pre-operative evaluation. [facility] Past Medical History Medical History (Updated 03/30/25 @ 06:58 by Juany Jaramillo CRNA) Obesity (BMI 30-39.9) IUP (intrauterine ), incidental Family History Family History (Updated 03/06/25 @ 12:32 by Yain Hernandez RN) Other Patient denies significant medical history Social History Social History Smoking status: Never smoker Second hand tobacco smoke exposure: No Substance use: never Do You Feel Safe in your Home?: Yes Lack of Transportation: No Lack of Food: Never True Current Housing: I Have Housing Concerned About Future Housing: No Difficulty Paying Gas/Electric Bills: No Difficulty Paying for Meds: No Currently Unemployed: No Education: Associate Degree Difficulty w/ Childcare or Family Care: No Spiritual care concerns: No Exam Day of Procedure 03/30/25 06:58
--- NOTE | 2025-03-30 08:40 | WPDHPUPDATE1 ---
History and Physical Update Update Date/Time: 03/30/25 08:40 29-year-old multi at term who presented in labor with spontaneous rupture membranes. 7 cm dilated. Epidural. Expectant management of labor. Reassuring status. History and Physical has been reviewed, including an updated exam of the patient. There are NO changes in the patient's condition. Risks, benefits, and alternatives have been discussed and questions answered. Patient agrees to proceed with procedure.
[2025-03-30] MEDS: OXYTOCIN 30 UNITS/NS 500 ML 30 UNITS/500 ML BAG 999 UNITS IV CONT (11:00)
--- NOTE | 2025-03-30 11:07 | WPDOBADMIT ---
Obstetrics - Admit Note Admission Note: record reviewed. No pertinent additions to the history and/or any subsequent changes in the physical findings that are not consistent with the expected course of the were found. Additions to the history and/or subsequent changes in the physical findings follow. admit in labor
--- NOTE | 2025-03-30 11:08 | PM.OBPRVD ---
OB - Vaginal Delivery Note Procedure Delivery date: 03/30/25 Induction method: None Delivery monitor: External FHT and External Uterine Route of delivery: Episiotomy description: None Laceration Description: None and Perineal - 1st Degree Delivery repair: vicryl Specimen: No Quantitative Blood Loss (ml): 75 Anesthesia type: Epidural Disposition: Floor Complications: No immediate complications [place] Baby Date of : 03/30/25 Time of : 10:55 Gestational Age by Date: 39 Infant gender: Male presentation: vertex position: Right Occiput Anterior Placenta delivery description: Spontaneous Cord Vessel Description: 3 Vessels score one minute: 8 score five minutes: 9
[2025-03-30] MEDS: OXYTOCIN 30 UNITS/NS 500 ML 30 UNITS/500 ML BAG 125 UNITS IV CONT (11:45)
[2025-03-30] MEDS: IBUPROFEN 600 MG TABLET PO (14:21)
[2025-03-30] MEDS: WITCH HAZEL 40 PADS 1 PAD TOPICAL (14:22)
[2025-03-30] MEDS: BENZOCAINE 20% AER SPR (*SP) 56 GM CAN 1 SPRAY TOPICAL (14:23)
--- NOTE | 2025-03-30 14:50 | PC.NURSE ---
Patient transferred to post room #112 via wheelchair. Support person present. Oriented to unit, room, information board, rooming in, admission packet and security measures. Patient verbalizes understanding.
[2025-03-31] VITALS: BP 124/72; PULSE 80; RESP 18; TEMP 36.9
[2025-03-31] MEDS: IBUPROFEN 600 MG TABLET PO ×3 (02:40→17:12)
[2025-03-31 05:08] LABS: Hematocrit 34.9 % (37.0-47.0); Hemoglobin 11.6 g/dL (12.0-15.0)
[2025-03-31 08:00] VITALS: RESP 17; TEMP 36.6
[2025-03-31 08:14] VITALS: BP 146/96; PULSE 74; PULSE 77; O2SAT 98
[2025-03-31 08:15] VITALS: BP 136/85; PULSE 78
[2025-03-31] MEDS: ESCITALOPRAM OXALATE 10 MG TABLET PO (08:17)
[2025-03-31] MEDS: DOCUSATE SODIUM 100 MG CAPSULE PO ×2 (08:17→16:03)
[2025-03-31] MEDS: MULTIVIT/MIN/PREN/FOL AC/IRON TABLET 1 TAB PO (08:18)
--- NOTE | 2025-03-31 08:44 | P.PNOB_ITS ---
OB - PN: Subj Subjective Date/time seen: 03/31/25 08:44 Patient comments: no complaints, pain well controlled, incisional pain, tolerating diet and flatus present OB - PN: Obj Data Labs 03/31/25 04:26 Labs: Laboratory Results - last 24 hr 03/31/25 04:26 Hgb 11.6 L Hct 34.9 L OB - PN A/P Plan day: 1 Plan: routine care Comments: No problems, routine care Time Spent With Patient Time: Total time spent is greater than 50% in coordination of care (as documented) at patient's floor/unit and/or counseling patient: Exam 2 Const: General: comfortable, no acute distress and alert Resp: Effort & Inspection: normal respiratory effort Auscultation: no crackles, no rales and no rhonchi Cardio: Rate: regular rate Heart sounds: no click, no murmurs and no rubs GI: Inspection: non-distended GI Palp: No Tenderness to palpation present (GI) Auscultation: normal bowel sounds Other: Incision - CDI Extrem: General: normal to inspection, no pedal edema and no calf tenderness
--- NOTE | 2025-03-31 08:46 | P.DS_ITS ---
DS: Admitting Diagnosis Discharge Date 03/31/25 Admitting Diagnosis term DS: Discharge Diagnosis Discharge Diagnosis (1) Post term , delivered: Code(s): O48.0 - Post-term Status: Acute OB - DS: Summary OB Procedures : None OB Procedures Intrapartum: Spontaneous Vag Delivery OB Procedures: : None Peripartum Data Laceration Description: None and Perineal - 1st Degree Episiotomy description: None Time Spent with Patient Time attestation: Total time spent providing and/or coordinating discharge services: DS: Data Data Completed and Pending Labs on day of discharge: Labs from last 24 hours 03/31/25 04:26 Hgb 11.6 L Hct 34.9 L Discharge Plan Discharge Consulting providers: Mendy Smith Discharging Clinician: Diaz Lala Patient Disposition: Home Activity: pelvic rest Diet: regular Patient Instructions: Antibiotic Form Patient Language: [place]alander Stand Alone Forms: General Discharge Information Follow-up/Referrals: Diaz Lala MD [Physician] - Discharge Medications: Continued excitalopram 10 mg aspirin 81 mg tablet 81 mg PO DAILY osnqaykz-ikp-Jp-FA 1 mg tablet PO Date of admission: 03/30/25 02:16 Primary Care Provider: UNKNOWN,DOCTOR Admitting Provider: Diaz Lala Attending physician on admission: Diaz Lala Condition: Stable
--- NOTE | 2025-03-31 13:02 | WPDANLDPN2 ---
Anes-Prog Note L&D Date/Time: 03/31/25 13:02 Neuro status: Neuro function grossly intact. Cardiovascular status: normal Respiratory status: normal Airway patency: baseline Mental status: baseline Post-Op hydration status: normal Vital Signs: Last Vital Signs Temp 36.6 C 03/31/25 08:00 Pulse 78 03/31/25 08:15 Resp 17 03/31/25 08:00 BP 136/85 03/31/25 08:15 Pulse Ox 98 03/31/25 08:14 O2 Del Method Room Air 03/31/25 08:00 Pain score (VAS): 0 I/O: Intake & Output 03/30/25 03/31/25 03/31/25 23:59 07:59 15:59 Intake Total 300 Balance 300 Post-procedural complaints: none Patient feedback: Patient satisfied with anesthetic care.
[2025-03-31 20:23] VITALS: BP 145/85; PULSE 76; RESP 16; TEMP 37.1; O2SAT 98
[2025-04-01] MEDS: IBUPROFEN 600 MG TABLET PO (03:32)
--- NOTE | 2025-04-01 07:32 | P.PNOB_ITS ---
OB - PN: Subj Subjective Date/time seen: 04/01/25 07:32 Patient comments: no complaints, pain well controlled and tolerating diet OB - PN: Obj Data Labs 03/31/25 04:26 OB - PN A/P Plan day: 2 Plan: routine care and discharge home Time Spent With Patient Time: Total time spent is greater than 50% in coordination of care (as documented) at patient's floor/unit and/or counseling patient: Exam 2 Const: General: comfortable and no acute distress Resp: Effort & Inspection: normal respiratory effort Auscultation: no rales, no rhonchi and no wheezes Cardio: Rate: regular rate Heart sounds: no click, no murmurs and no rubs GI: GI Palp: Yes Soft to palpation and No Tenderness to palpation present (GI) Auscultation: normal bowel sounds Extrem: General: normal to inspection, no pedal edema and no calf tenderness
[2025-04-01 08:10] VITALS: RESP 17; TEMP 37.2
[2025-04-01 08:12] VITALS: PULSE 68; O2SAT 100
[2025-04-01] MEDS: ACETAMINOPHEN 325 MG TABLET 650 MG PO (08:12)
[2025-04-01] MEDS: DOCUSATE SODIUM 100 MG CAPSULE PO (08:12)
[2025-04-01] MEDS: ESCITALOPRAM OXALATE 10 MG TABLET PO (08:12)
[2025-04-01] MEDS: MULTIVIT/MIN/PREN/FOL AC/IRON TABLET 1 TAB PO (08:13)
[2025-04-01 08:15] VITALS: BP 161/86; PULSE 64
[2025-04-01 08:16] VITALS: BP 155/92; PULSE 62
[2025-04-01 08:17] VITALS: BP 155/86; PULSE 63
--- NOTE | 2025-04-01 08:27 | P.PCNOB_ITS ---
OB - Delivery Note Procedure Delivery date: 04/01/25 Pre-op diagnosis: Previous Delivery Post-op Diagnosis: Same Delivery monitor: External FHT and External Uterine Procedure Performed: Repeat Surgeon: Diaz Lala MD Anesthesia type: Epidural Description of Procedure/Findings: The patient was taken the operating room.? She was prepped and draped in dorsal supine position with a leftward tilt.? This was done after spinal anesthetic was applied.? A low-transverse skin incision was made and carried down till of the fascia with the knife.? The fascial incision was made with the knife.? The fascial incision was extended laterally with Deluca scissors.? The fascia was tented upward superiorly and inferiorly the rectus muscles were dissected off bluntly.? The rectus muscles were the midline.? The preperitoneal fat and peritoneum were dissected open bluntly at the superior aspect of the rectus muscles.? The peritoneal incision was extended superior and inferior with good position of bladder.? The uterine incision was made with a scalpel down to the level of the amniotic cavity.? The amniotic cavity was entered bluntly.? The infant was delivered.? The cord was clamped and cut and the was handed off to waiting pediatric staff.? Cord bloods were ob tained.? The placenta was removed manually.? The uterus was exteriorized.? The uterus was cleared of all clots, debris and membranes.? The uterus was closed in 0 Vicryl running lock fashion.? An imbricating over a was placed along the incision line as well.? The uterus was returned to the abdomen.? The gutters were cleared of all clots and debris.? The fascia was closed with 0 Vicryl running fashion.? The subcutaneous tissue was irrigated pinpoint bleeders were cauterized.? The skin was closed with subcuticular absorbable sandi.? The skin incision line was covered with glue.? The patient tolerated the procedure well.? She has taken recovery room in stable condition.? Sponge lap and needle counts were correct x2.? Estimated Blood Loss: 750 Pathology: None sent Complications: No immediate complications Condition: Stable Disposition: Floor [place] Baby Date of : 03/30/25 Time of : 10:55 Gestational Age by Date: 39 gender: Male presentation: vertex position: Right Occiput Anterior Placenta delivery description: Spontaneous Cord Vessel Description: 3 Vessels score one minute: 8 score five minutes: 9
--- NOTE | 2025-04-01 09:30 | PC.NURSE ---
Consulted with mother concerning needs and she shared her ability to independently latch infant optimally without pain. She is while we talk. Mother is feeding appropriately for growth of and understands stimulating infant to eat if needed. has had appropriate feedings in the last 24 hours meets the outcomes for weight, output, blood sugar and jaundice at this time. Reinforced understanding of signs of adequate intake, transition of stool, prevention/relief of engorgement, plugged ducts, mastitis, community resources ([facility] referral faxed to [place]), and when to call a provider using the resource of the feeding sheet along with the mom and baby guide. She has a breast pump at home. Mother voiced understanding of the information shared, is confident to continue effectively her infant at home, when to call for assistance, denies any additional assistance or education at this time. Reported to the Primary RN.
[2025-04-02 10:17] VITALS: BP 135/80; PULSE 88; RESP 18; TEMP 37; O2SAT 100
== END 2025-04-01 10:50 | disposition home or self-care (01) | DRG 807 ==
LOC: ANHLDR 04:28 → ANHOBPP 15:35
PROVIDERS: Advanced Practice Midwife; Admitting Provider Obstetrics & Gynecology; Visit Provider Obstetrics & Gynecology
DX: O99.824 Streptococcus B carrier state complicating childbirth (principal); Z37.0 Single live birth; Z3A.39 39 weeks gestation of pregnancy; O70.0 First degree perineal laceration during delivery; O34.211 Maternal care for low transverse scar from previous cesarean delivery
CPT/HCPCS: 36415; 85014; 85018; 85025; 86593; 86703; 86850; 86900; 86901; A9270; G0432; J2590; J2795; J7120